=== PATIENT | male | born 1945 | race Caucasian/White ===

== ENCOUNTER 2016-07-30 19:47 | Emergency (ER) | payer OTHER, MEDICARE ==
[2016-07-30 20:15] VITALS: BP 106/66
--- NOTE | 2016-07-30 20:39 | ED GENERAL ADULT ---
History of Present Illness General Chief Complaint: Dizziness Stated Complaint: PER PT DIZZINESS/FEVER? Source: patient, family Exam Limitations: no limitations Vital Signs & Intake/Output Vital Signs & Intake/Output Vital Signs Date Time Temp Pulse Resp B/P B/P Pulse O2 O2 Flow FiO2 Mean Ox Delivery Rate 07/30 2014 96.6 96 18 106/66 96 Room Air Allergies Coded Allergies: No Known Allergies (07/30/16) Reconcile Medications Aspirin (Ecotrin*) 81 MG TABLET.DR 1 TAB PO DAILY HEART/BLOOD (Reported) Atorvastatin Calcium 10 MG TABLET 1 TAB PO DAILY CHOLESTEROL (Reported) Glipizide (Glipizide ER) 10 MG TAB.ER.24 1 TAB PO BID DM (Reported) Lisinopril 20 MG TABLET 1 TAB PO DAILY BP (Reported) Metformin HCl (Metformin HCl ER) 500 MG TAB.ER.24H 2 TAB PO BID DM (Reported) Phenazopyridine HCl 200 MG TABLET 1 TAB PO TID (Reported) after food Pioglitazone HCl 45 MG TABLET 1 TAB PO DAILY DM (Reported) Sulfamethoxazole/Trimethoprim (Sulfamethoxazole-Tmp Ds Tablet) 800 MG-160 MG TABLET 1 TAB PO BID (Reported) Triage Note: TRIAGE: PATIENT TO ER FROM HOME W/ SPOUSE, REPORTS WAS SENT IN BY HIS MD FOR CONTINUED FEVERS S/P DX W/ UTI AND IS TAKING ABX PRESCRIBED. PATIENT AFEBRILE. PATIENT REPORTING "I FEEL STUPID BEING HERE, I DON'T EVEN HAVE ANY COMPLAINTS AND I DON'T HAVE A FEVER RIGHT NOW." MD ALLEN AWARE AND WILL COME TO TRIAGE TO SPEAK TO PATIENT. Triage Nurses Notes Reviewed? yes Onset: Abrupt Duration: day(s): Timing: recent history HPI: 07/30/16 9:30 pm 71-year-old man presents to the emergency department with fever. He saw his primary care doctor yesterday and was diagnosed with UTI. He has had a UTI in the past. He denies any abdominal pain vomiting or other complaints. The onset of the symptoms was abrupt, the duration has been 48 hours, the severity is significant; as the symptoms required to come to the emergency department for care (LAKISHA ALLEN DO) Past History Travel History Traveled to [place] past 21 day No Medical History Any Pertinent Medical History? see below for history Neurological: NONE EENT: NONE Cardiovascular: NONE Respiratory: NONE Gastrointestinal: NONE Hepatic: NONE Renal: NONE Musculoskeletal: NONE Psychiatric: NONE Endocrine: diabetes Blood Disorders: NONE Cancer(s): NONE WELLNESS SPA MANAGER/Reproductive: NONE Surgical History Surgical History: non-contributory Psychosocial History What is your primary language Vietnamese Tobacco Use: Never used Family History Hx Contributory? No (LAKISHA ALLEN DO) Review of Systems Review of Systems Constitutional: Reports: fever. EENTM: Reports: no symptoms. Respiratory: Denies: cough, short of breath. Cardiovascular: Denies: chest pain. GI: Denies: abdominal pain. Genitourinary: Reports: dysuria. Musculoskeletal: Denies: back pain. Skin: Denies: rash. Neurological/Psychological: Denies: headache. Hematologic/Endocrine: Denies: bruising, bleeding. (LAKISHA ALLEN DO) Physical Exam Physical Exam General Appearance: well developed/nourished, alert, awake, anxious, mild distress Head: atraumatic, normal appearance Eyes: Bilateral: normal appearance, PERRL, EOMI. Ears, Nose, Throat: normal ENT inspection Neck: full range of motion Respiratory: normal breath sounds, chest non-tender, no respiratory distress Cardiovascular: regular rate/rhythm Peripheral Pulses: 4+ radial (R), 4+ radial (L) Gastrointestinal: soft, non-tender Rectal: heme negative stool, enlarged prostate, nontender Back: normal range of motion Extremities: normal range of motion Neurologic/Psych: no motor/sensory deficits, awake, alert, oriented x 3, normal gait Skin: intact, normal color, warm/dry Core Measures ACS in differential dx? No CVA/TIA Diagnosis: No Severe Sepsis Present: No Septic Shock Present: No (LAKISHA ALLEN DO) Progress Differential Diagnoses I considered the following diagnoses in my evaluation of the patient: [Sepsis, diabetic ketoacidosis, pyelonephritis] Plan of Care: Orders Procedure Date/time Status Add-on Test (ER Only) 07/31 2143 Active LYME TITRE 07/30 2050 Active CULTURE,URINE 07/30 2038 Active BLOOD CULTURE 07/30 2038 Active URINALYSIS 07/30 2038 Complete COMPREHENSIVE METABOLIC PANEL 07/30 2038 Complete CBC WITHOUT DIFFERENTIAL 07/30 2038 Complete Laboratory Tests 07/30/162055: Urinalysis LIGHT H, Urine Color YEL, Urine Clarity HAZY H, Urine pH 6.0, Ur Specific [place] 1.015, Urine Protein TRACE H, Urine Ketones NEG, Urine Nitrite POS H, Urine Bilirubin NEG, Urine Urobilinogen 1.0, Ur Leukocyte Esterase SMALL H, Ur Microscopic SEDIMENT EXAMINED, Urine WBC 15-25 H, Urine Hemoglobin NEG, Urine Glucose NEG 07/30/162050: Anion Gap 11, Estimated GFR 50 L, BUN/Creatinine Ratio 15.7, Glucose 166 H, Calcium 9.1, Total Bilirubin 1.1, AST 29, ALT 39, Alkaline Phosphatase 66, Total Protein 6.6, Albumin 4.1, Globulin 2.5, Albumin/Globulin Ratio 1.6, CBC w Diff NO MAN DIFF REQ, RBC 4.47 L, MCV 86.7, MCH 29.2, RDW 13.7, MPV 7.6, Gran % 88.7 H, Lymphocytes % 4.0 L, Monocytes % 6.4, Eosinophils % 0.8, Basophils % 0.1, Absolute Granulocytes 9.2 H, Absolute Lymphocytes 0.4 L, Absolute Monocytes 0.7 H, Absolute Eosinophils 0.1, Absolute Basophils 0, PUBS MCHC 33.6, Lyme Disease Antibody Pending Microbiology 07/30 2106 BLOOD: Blood Culture - RECD 07/31 2055 URINE ROUT: Urine Culture - RECD 07/30 2050 BLOOD: Blood Culture - RECD Initial ED EKG: none (LAKISHA ALLEN DO) Departure Departure Disposition: HOME OR SELF CARE Condition: Stable Clinical Impression Primary Impression: Urinary tract infection Referrals: ROD YUEN,TIA Devine Departure Forms: Customer Survey General Discharge Information Comments The patient was signed out to Dr. Gramajo will follow labs. He has mild azotemia and a slightly elevated creatinine. He will drink fluids and take the antibiotics and follow up with his doctor as instructed. (LAKISHA ALLEN DO) PA/PHYSICAL SCIENTIST Co-Sign Statement Statement: ED Attending supervision documentation- [] I saw and evaluated the patient. I have also reviewed all the pertinent lab results and diagnostic results. I agree with the findings and the plan of care as documented in the PA's/PHYSICAL SCIENTIST's documentation. [x] I have reviewed the ED Record and agree with the PA's/PHYSICAL SCIENTIST's documentation. [] Additions or exceptions (if any) to the PAs/PHYSICAL SCIENTIST's note and plan are summarized below: [] (TERRI YUEN,STACY Mandel) Critical Care Note Critical Care Note Critical Care Time: non-applicable (LAKISHA ALLEN DO)
[2016-07-30] MEDS ORDERED: ATORVASTATIN CA10 M1 PO (20:56)
[2016-07-30] MEDS ORDERED: LISINOPRIL20 M1 PO (20:56)
[2016-07-30] MEDS ORDERED: GLIPIZIDE ER10 M1 PO (20:57)
[2016-07-30] MEDS ORDERED: METFORMIN HCL500 M4 PO (20:57)
[2016-07-30] MEDS ORDERED: PIOGLITAZONE HC45 M1 PO (20:57)
[2016-07-30] MEDS ORDERED: ASPIRIN EC81 M1 PO (20:58)
[2016-07-30] MEDS ORDERED: SULFAMETHOXAZO1 EAC1 PO (20:58)
[2016-07-30] MEDS ORDERED: PHENAZOPYRIDIN200 M3 PO (20:58)
[2016-07-30 21:00] LABS: ABSOLUTE BASOPHIL COUNT 0 /CUMM (0.0-0.2); ABSOLUTE EOSINOPHIL COUNT 0.1 /CUMM (0.0-0.7); ABSOLUTE GRANULOCYTE CT 9.2 /CUMM (1.4-6.5); ABSOLUTE LYMPH COUNT 0.4 /CUMM (1.2-3.4); ABSOLUTE MONOCYTE COUNT 0.7 /CUMM (0.10-0.60); BASOPHIL % 0.1 % (0.0-2.0); EOSINOPHIL % 0.8 % (0-5); HEMATOCRIT 38.7 % (42-52); MEAN CORPUSCULAR HGB 29.2 PG (27.0-31.0); MEAN CORPUSCULAR HGB CONC 33.6 G/DL (33.0-37.0); MEAN CORPUSCULAR VOLUME 86.7 FL (80.0-94.0); MEAN PLATELET VOLUME 7.6 FL (7.4-10.4); PLATELET COUNT 147 /CUMM (130-400); RBC DISTRIBUTION WIDTH 13.7 % (11.5-14.5); RED BLOOD CELL CT 4.47 /CUMM (4.70-6.10); WHITE BLOOD CELL COUNT 10.3 /CUMM (4.8-10.8)
[2016-07-30 21:03] LABS: GRANULOCYTE % 88.7 % (42.2-75.2)
== END 2016-07-30 22:06 ==
LOC: ERH 19:47
PROVIDERS: Emergency Medicine
DX: N39.0 Urinary tract infection, site not specified (principal)
CPT/HCPCS: 86618; 81001; 87040; 87086

== ENCOUNTER 2016-08-29 15:46 | Inpatient (IN) | payer OTHER, MEDICARE ==
[~2016-08-29] VITALS: Ht 182.9 cm; Wt 90.7 kg
[~2016-08-29 15:46] MED LIST: ASPIRIN EC81 M1 PO; ATORVASTATIN CA10 M1 PO; GLIPIZIDE ER10 M1 PO; LISINOPRIL20 M1 PO; METFORMIN HCL500 M4 PO; PHENAZOPYRIDIN200 M3 PO; PIOGLITAZONE HC45 M1 PO; SULFAMETHOXAZO1 EAC1 PO
--- NOTE | 2016-08-29 15:52 | NUR ---
PT TO ED FOR C/C OF LIGHTHEADEDNESS, FEVER AND LETHARGY THAT STARTED THIS MORNING. DENIES CP, SOB, DIFFICULTY BREATHING. SOME NAUSEA, HAS HAD RECURRENT UTI'S OVER THE LAST FEW WEEKS TREATED WITH ANTIBIOTICS. TOOK TYLENOL AT 1330 FOR FEVER. PER PRIMARY, ?PROSTATE INFECTION THAT HASN'T RESOLVED. BP 93/59 HR: 120
--- NOTE | 2016-08-29 16:00 | NUR ---
PT WHEELED TO ROOM 18 WENT TO BATHROOM AND NOW BEEN ASSISTED TO STRETCHER AND EKG TO BE COMPLETED
--- NOTE | 2016-08-29 16:20 | NUR ---
MARYAM CRANE AT BEDSIDE WITH PT
[2016-08-29 16:23] LABS: ABSOLUTE BASOPHIL COUNT 0 /CUMM (0.0-0.2); ABSOLUTE EOSINOPHIL COUNT 0 /CUMM (0.0-0.7); ABSOLUTE GRANULOCYTE CT 17.3 /CUMM (1.4-6.5); ABSOLUTE LYMPH COUNT 0.5 /CUMM (1.2-3.4); ABSOLUTE MONOCYTE COUNT 1.2 /CUMM (0.10-0.60); BASOPHIL % 0 % (0.0-2.0); EOSINOPHIL % 0.1 % (0-5); GRANULOCYTE % 90.9 % (42.2-75.2); HEMATOCRIT 40.6 % (42-52); MEAN CORPUSCULAR HGB 29.3 PG (27.0-31.0); MEAN CORPUSCULAR HGB CONC 33.9 G/DL (33.0-37.0); MEAN CORPUSCULAR VOLUME 86.6 FL (80.0-94.0); MEAN PLATELET VOLUME 7.5 FL (7.4-10.4); PLATELET COUNT 228 /CUMM (130-400); RBC DISTRIBUTION WIDTH 14.2 % (11.5-14.5); RED BLOOD CELL CT 4.69 /CUMM (4.70-6.10)
--- NOTE | 2016-08-29 16:23 | ED GENERAL ADULT ---
History of Present Illness General Chief Complaint: Fever Stated Complaint: FEVER,LIGHTHEADED,LETHARGIC Source: patient, family Exam Limitations: no limitations Vital Signs & Intake/Output Vital Signs & Intake/Output Vital Signs Date Time Temp Pulse Resp B/P B/P Pulse O2 O2 Flow FiO2 Mean Ox Delivery Rate 08/29 2358 100.5 08/29 2345 100.5 107 20 140/62 95 08/29 2234 100.0 97 18 109/57 97 Room Air 08/29 2115 104 111/56 08/29 2050 102.0 107 20 97/53 95 Room Air 08/29 1952 102.9 08/29 1950 102.9 08/29 1918 103.2 08/29 1904 103.2 08/29 1820 99.5 105 20 120/60 97 Room Air 08/29 1803 99.5 98 16 119/69 98 Room Air 08/29 1641 97 Room Air 08/29 1552 97.8 120 15 93/59 96 Room Air Room Air ED Intake and Output 08/30 0000 08/29 1200 Intake Total 1000 Output Total Balance 1000 Intake, IV 1000 Patient 200 lb Weight Weight Reported by Patient Measurement Method Allergies Coded Allergies: No Known Allergies (08/29/16) Reconcile Medications Ascorbate Calcium (Vitamin C) 500 MG TABLET 1 TAB PO BID SUPPLEMENT (Reported ) Aspirin (Ecotrin*) 81 MG TABLET.DR 1 TAB PO DAILY HEART/BLOOD (Reported) Atorvastatin Calcium 10 MG TABLET 1 TAB PO DAILY CHOLESTEROL (Reported) Empagliflozin (Jardiance) 10 MG TABLET 1 TAB PO DAILY DM (Reported) Fish Oil/Borage/Flax/Om3,6,9#1 ([place] 3-6-9 1,200 MG Softgel) 1,200 MG CAPSULE 1 CAP PO DAILY SUPPLEMENT (Reported) Glipizide (Glucotrol XL) 10 MG TAB.ER.24 1 TAB PO DAILY DM (Reported) Lisinopril 20 MG TABLET 1 TAB PO DAILY BP (Reported) Metformin HCl (Metformin HCl ER) 500 MG TAB.ER.24H 2 TAB PO BID DM (Reported) Multivitamin (Daily Multiple Vitamin) 1 EACH TABLET 1 TAB PO DAILY SUPPLEMENT (Reported) Pioglitazone HCl (Actos) 30 MG TABLET 1 TAB PO DAILY DM (Reported) Selenium 100 MCG TABLET 1 TAB PO DAILY SUPPLEMENT (Reported) Triage Note: PT TO ED FOR C/C OF LIGHTHEADEDNESS, FEVER AND LETHARGY THAT STARTED THIS MORNING. DENIES CP, SOB, DIFFICULTY BREATHING. SOME NAUSEA, HAS HAD RECURRENT UTI'S OVER THE LAST FEW WEEKS TREATED WITH ANTIBIOTICS. TOOK TYLENOL AT 1330 FOR FEVER. PER PRIMARY, ?PROSTATE INFECTION THAT HASN'T RESOLVED. BP 93/59 HR: 120 Triage Nurses Notes Reviewed? yes Onset: Abrupt Duration: hour(s): (3-4), better Timing: single episode today Injury Environment: home Severity: mild, moderate No Modifying Factors: none HPI: 71-year-old male with past medical history of diabetes, hypertension, recurrent UTI and hyperlipidemia presents for evaluation of fever, headaches, lightheadedness, dizziness fatigue and weakness for the past day. Patient reports symptoms started suddenly approximately 9:30 this morning and a gradually been worsening throughout the day. Patient states that he took 2 extra strength Tylenol approximately an hour before coming in and currently feels much better. He does report some pain in his right flank and right lower back that is present only when urinating and goes away immediately after is done urinating. He also reports associated urinary frequency but no urgency no dysuria no hematuria. He has a history of recurrent UTIs as well as prostatitis. Again patient currently feels well and denies any symptoms currently. They resolved approximately an hour after taking Tylenol. No shortness of breath, chest pain, lower extremity edema, nausea, vomiting, diarrhea or any other associated symptoms. Patient also reports that he had sexual intercourse last night and felt that his semen was a differENT color (LASHAUN CRANE PA-C) Past History Travel History Traveled to [place] past 21 day No Medical History Any Pertinent Medical History? see below for history Neurological: NONE EENT: NONE Cardiovascular: hypertension, hyperlipidemia Respiratory: NONE Gastrointestinal: NONE Hepatic: NONE Renal: NONE Musculoskeletal: NONE Psychiatric: NONE Endocrine: diabetes Blood Disorders: NONE Cancer(s): NONE CLIENT SUPPORT REPRESENTATIVE/Reproductive: NONE Surgical History Surgical History: non-contributory Psychosocial History What is your primary language Azerbaijani Tobacco Use: Never used ETOH Use: denies use Illicit Drug Use: denies illicit drug use Family History Hx Contributory? Yes (LASHAUN CRANE PA-C) Review of Systems Review of Systems Constitutional: Reports: see HPI, chills, diaphoresis, fever, malaise. EENTM: Reports: no symptoms. Respiratory: Reports: no symptoms. Cardiovascular: Reports: no symptoms. GI: Reports: no symptoms. Genitourinary: Reports: no symptoms. Musculoskeletal: Reports: no symptoms. Skin: Reports: no symptoms. Neurological/Psychological: Reports: no symptoms. Hematologic/Endocrine: Reports: no symptoms. Immunologic/Allergic: Reports: no symptoms. All Other Systems: Reviewed and Negative (ROYCE FUNEZ,LASHAUN) Physical Exam Physical Exam General Appearance: well developed/nourished, no apparent distress, alert, awake , comfortable Comments: General: Hemodynamically stable. Afebrile. Well-developed well-nourished person in no acute distress. Head: Atraumatic, normocephalic Eyes: EOMI bilaterally, PERRLA, conjunctiva are not injected, no discharge, no nystagmus, fundus grossly normal bilaterally Nose: Atraumatic, no rhinorrhea, mucosa is not erythematous, no epistaxis. Sinuses are non-tender Ears: TM pearly murray color bilaterally, external canal is clear, no discharge, hearing is normal Mouth: Appropriate dentition, no gingival bleeding, moist mucus membranes, no oral lesions, tonsils not erythematous or enlarged and free of exudate. Uvula rises midline. Neck: Supple, full active ROM, no lymphadenopathy, no midline tenderness to palpation, no thyromegaly, no tracheal deviation. Back: Non-tender, full active ROM, no scoliosis, no CVA tenderness Cardiovascular: regular rate and rhythm, no murmurs, rubs, or gallops. No JVD Respiratory: Chest is nontender. Regular respiratory rate and effort. No accessory muscle use. Lungs clear to auscultation bilaterally. Abdomen: Soft, non-tender, non-distended, no organomegaly. No rebound tenderness or guarding. Normoactive bowel sounds. Extremities: No edema. No gross deformities. No joint swelling. No calf swelling or tenderness. Full active and passive ROM. Strength 5/5 in upper and lower extremities. Peripheral pulses 2+ bilaterally, Patellar DTR 2+ Neuro: No confusion. Motor and sensory function is intact. Appropriate gait. Cerebellar function intact. Skin: Warm and dry. Appropriate turgor. No lesions or bruising. No appreciable rash on exposed skin. Core Measures ACS in differential dx? Yes CVA/TIA Diagnosis: No Severe Sepsis Present: No Septic Shock Present: No (ROYCE FUNEZ,LASHAUN) Progress Differential Diagnoses I considered the following diagnoses in my evaluation of the patient: [UTI, prostatitis, pyelonephritis, sepsis, kidney stone, chronic kidney disease, diverticulitis, appendicitis, pneumonia, acute coronary syndrome, Lyme disease] Plan of Care: Orders Procedure Date/time Status Consistent Carbohydrate 3 08/30 B Active CBC WITHOUT DIFFERENTIAL 08/30 06 Active BASIC ELECTROLYTES PLUS BUN&CR 08/30 06 Active LACTIC ACID 08/30 0000 Active Vital Signs 08/29 235 Active Teach/Educate 08/29 235 Active Pain Treatment and Response 08/29 235 Active Nutritional Intake, Monitor 08/29 235 Active Isolation 08/29 235 Active Intake & Output 08/29 235 Active Patient Care Conference 08/29 235 Active Activity/Ambulation 08/30 2355 Active Pathway - chart 08/29 2224 Active House Staff 08/29 2224 Active Patient Data 08/29 2224 Active Patient Data 08/29 2054 Active Saline Lock 08/29 2032 Active Misc Message 08/29 2032 Active ED Holding Orders 08/29 2032 Active Admit to inpatient 08/29 2032 Active Vital Signs 08/29 2032 Active Code Status 08/29 2032 Active LACTIC ACID 08/29 1929 Complete Add-on Test (ER Only) 08/29 1833 Active Add-on Test (ER Only) 08/29 1716 Active Telemetry/Taker Down 08/29 1642 Complete Intake & Output 08/29 1638 Active BLOOD CULTURE 08/29 1631 Active LACTIC ACID 08/29 1629 Complete CULTURE,URINE 08/29 1609 Active TROPONIN LEVEL 08/29 1609 Complete URINALYSIS 08/29 1553 Complete COMPREHENSIVE METABOLIC PANEL 08/29 1553 Complete CBC WITHOUT DIFFERENTIAL 08/29 1553 Complete EKG 08/29 1553 Active VTE Mechanical Prophylaxis 08/29 UNK Active FingerStick- Glucose 08/29 UNK Active Current Medications Sig/Arlette Start time Last Medication Dose Stop Time Status Admin Atorvastatin Calcium 10 MG 1700 08/30 1700 AC (Lipitor) Aspirin Buffered 81 MG DAILY 08/30 1000 AC (Ecotrin) Ceftriaxone Sodium 1,000 MG DAILY 08/30 1000 AC (Rocephin) Fish Oil 1,050 MG DAILY 08/30 1000 AC ([place]-3) Multivitamins 1 TAB DAILY 08/30 1000 AC Therapeutic (Theragran-M Vitamins Tabs) Insulin Aspart 0 TIDAC 08/30 0800 AC (NovoLOG) Sodium Chloride 1,000 ML Q13H 08/29 2230 AC 08/29 (Normal Saline 0.9%) 08/30 1129 2323 Ascorbic Acid 500 MG BID 08/29 2221 AC (Vitamin C) Acetaminophen 325 MG Q6 PRN 08/29 221 AC (Tylenol) Acetaminophen 650 MG Q6P PRN 08/29 221 AC (Tylenol) Acetaminophen 1,000 MG Q6P PRN 08/29 221 AC 08/29 (Ofirmev) 2358 Laboratory Tests 08/30/16 0025: Lactic Acid Pending 08/29/16 2105: Lactic Acid 2.5 H 08/29/16 1749: Lactic Acid 3.1 H 08/29/16 1609: Anion Gap 15, Estimated GFR 55 L, BUN/Creatinine Ratio 25.4 H, Glucose 252 H, Calcium 9.7, Total Bilirubin 1.1, AST 22, ALT 35, Alkaline Phosphatase 64, Troponin I < 0.01, Total Protein 7.5, Albumin 4.8, Globulin 2.7, Albumin/ Globulin Ratio 1.8, CBC w Diff MAN DIFF ORDERED, RBC 4.69 L, MCV 86.6, MCH 29.3 , RDW 14.2, MPV 7.5, Gran % 90.9 H, Lymphocytes % 2.7 L, Monocytes % 6.3, Eosinophils % 0.1, Basophils % 0 L, Absolute Granulocytes 17.3 H, Segmented Neutrophils 79 H, Band Neutrophils 9 H, Absolute Lymphocytes 0.5 L, Lymphocytes 2 L, Monocytes 9, Absolute Monocytes 1.2 H, Absolute Eosinophils 0 , Absolute Basophils 0, Metamyelocytes 1, Platelet Estimate ADEQUATE, Normocytic RBCs VERIFIED, Normochromic RBCs VERIFIED, PUBS MCHC 33.9, Urine Color YEL, Urine Clarity HAZY H, Urine pH 5.5, Ur Specific [place] 1.010, Urine Protein 30 H, Urine Ketones NEG, Urine Nitrite NEG, Urine Bilirubin NEG, Urine Urobilinogen 0.2, Ur Leukocyte Esterase SMALL H, Ur Microscopic SEDIMENT EXAMINED, Urine RBC 25-50 H, Urine WBC 50-75 H, Ur Epithelial Cells RARE, Urine Bacteria MANY H, Urine Hemoglobin LARGE H, Urine Glucose >=1000 H Microbiology 08/29 1749 BLOOD: Blood Culture - RECD 08/29 1735 BLOOD: Blood Culture - RECD 08/29 1609 URINE ROUT: Urine Culture - RECD 5 PM: Patient seen and evaluated. He is currently afebrile but his blood pressure is low and he is mildly tachycardic. He will have workup to rule out sepsis. He was given a liter normal saline. Will follow-up on blood work and urinalysis. Was given another 2 L of normal saline as his blood pressures continued to remain in the 90s over 50s. Urine is showing signs of infection. Lactate is 3.9 white blood cell count elevated to 19. Blood cultures obtained. Patient was given a gram of ceftriaxone IV. CT scan of the abdomen and pelvis without contrast was ordered to rule out any type of obstructive nephropathy. Patient was also given IV Tylenol as his fever has returned. Patient will be admitted for treatment of prostatitis versus pyelonephritis with possible sepsis. 9:30 PM: Patient's blood pressure has responded to IV fluids. He is running in the low 110s over 60s. He still mildly tachycardic to the low 100s. He still has a low-grade fever. CT scan abdomen and pelvis showed non-specific signs of pyelonephritis. Talked with the hospitalist patient will be admitted. It is possible he may need to go to the ICU due to his hypotension. 10 PM: Since patient's blood pressure responded to the IV fluids he'll be admitted to [facility]. (ROYCE FUNEZ,LASHAUN) Diagnostic Imaging: Viewed by Me: Radiology Read, CT Scan. Discussed w/RAD: Radiology Read, CT Scan. Initial ED EKG: SINUS TACH,PROBABLE LEFT ATRIAL ABNR Comments: PATIENT: FRANCISCO BURDICK PRESENT AGE: 71 PATIENT ACCOUNT NO: [id number] : 46 LOCATION: [facility] ORDERING PHYSICIAN: LASHAUN CRANE PA-C SERVICE DATE: 08/29/16 EXAM TYPE: RAD - XRY-PORTABLE CHEST XRAY EXAMINATION: XR PORTABLE CHEST CLINICAL INFORMATION: Pneumonia. Fever of unknown origin COMPARISON: None TECHNIQUE: Portable frontal view of the chest was obtained. FINDINGS: Monitoring devices overlie the patient. The cardiac size is within normal limits. There is no mediastinal or hilar mass. The vasculature, lungs and visualized pleural margins are within normal limits. There is some degenerative change in the spine IMPRESSION: No pneumonia or edema. No etiology for fever demonstrated DICTATED BY: RENEE MISHRA MD DATE/TIME DICTATED:08/29/161715 AIRLINE MANAGERIAL SUPERVISOR:DARIN DATE/TIME TRANSCRIBED:08/29/161715 CONFIDENTIAL, DO NOT COPY WITHOUT APPROPRIATE AUTHORIZATION. <Electronically signed in Other Vendor System> SIGNED BY: RENEE MISHRA MD 08/29/16 1721 PATIENT: FRANCISCO BURDICK PRESENT AGE: 71 PATIENT ACCOUNT NO: [id number] : 46 LOCATION: [facility] ORDERING PHYSICIAN: STACY MURRAY MD SERVICE DATE: 08/29/16 EXAM TYPE: CAT - CT ABD & PELVIS W/O IV CONTRAS EXAMINATION: CT ABDOMEN AND PELVIS WITHOUT CONTRAST CLINICAL INFORMATION: Left flank pain. Pyelonephritis versus prostatitis versus stone. COMPARISON: None TECHNIQUE: Multidetector volumetric imaging was performed from the superior aspect of the liver through the pubic symphysis. Sagittal and coronal reformatted images were obtained on the technologist's workstation. DLP: 407 mGy-cm FINDINGS: LUNG BASES: Subsegmental atelectasis. The visualized cardiac structures are unremarkable. LIVER, GALLBLADDER, AND BILIARY TREE: The liver is normal in size, shape, and attenuation. No focal hepatic lesion or biliary ductal dilatation is present. The gallbladder is unremarkable with no evidence of radiopaque gallstones, gallbladder wall thickening, or obvious pericholecystic inflammatory changes. PANCREAS: Unremarkable. SPLEEN: Unremarkable. ADRENAL GLANDS: Unremarkable. KIDNEYS AND URETERS: The kidneys are normal in size, shape, and attenuation. There is no hydronephrosis or hydroureter. There is bilateral perinephric stranding, right greater than left. There is an exophytic right lower pole renal cyst measuring 4.4 cm. No renal calculi. BLADDER: Unremarkable. GASTROINTESTINAL TRACT: The stomach and small bowel are unremarkable. No dilated loops of bowel or evidence of obstruction. Normal appendix. No colonic wall thickening or inflammatory change. Mild to moderate colonic stool burden. ABDOMINAL WALL: No significant hernia is appreciated. LYMPH NODES: Normal. VASCULAR: Mild atherosclerotic calcifications. PELVIC VISCERA: The prostate and seminal vesicles are unremarkable. OSSEOUS STRUCTURES: No acute or suspicious osseous abnormality. Multilevel degenerative changes of the spine. Degenerative changes in the hips. IMPRESSION: No hydronephrosis. No renal calculi. There is bilateral perinephric stranding, right greater than left. This is a nonspecific appearance. Lack of IV contrast limits evaluation of the kidneys. Pyelonephritis is not excluded. DICTATED BY: BARB SANTIAGO MD DATE/TIME DICTATED:08/29/162104 AIRLINE MANAGERIAL SUPERVISOR:DAIRN DATE/TIME TRANSCRIBED:08/29/162104 CONFIDENTIAL, DO NOT COPY WITHOUT APPROPRIATE AUTHORIZATION. <Electronically signed in Other Vendor System> SIGNED BY: BARB SANTIAGO MD 08/29 (LASHAUN CRANE PA-C) Departure Departure Disposition: STILL A PATIENT Condition: Stable Clinical Impression Primary Impression: Prostatitis, acute Referrals: LOIDA YUEN,NICA Lawrence (PCP/Family) Departure Forms: Customer Survey General Discharge Information Admission Note Spoke With: EDUARD ROMERO MD Documentation of Exam: Documentation of any treatments & extenuating circumstances including Concerns Regarding Discharge (functional status, medication knowledge or non-compliance, living conditions, etc.) that warrant an admission rather than observation: [IV fluids, serial labs, urology consult, monitoring of vital signs, IV antibiotics, follow-up on cultures, blood pressure control] (LASHAUN CRANE PA-C) PA/MANAGER ASSESSMENT Co-Sign Statement Statement: ED Attending supervision documentation- [] I saw and evaluated the patient. I have also reviewed all the pertinent lab results and diagnostic results. I agree with the findings and the plan of care as documented in the PA's/MANAGER ASSESSMENT's documentation. [x] I have reviewed the ED Record and agree with the PA's/MANAGER ASSESSMENT's documentation. [] Additions or exceptions (if any) to the PAs/MANAGER ASSESSMENT's note and plan are summarized below: [] (TERRI YUEN,STACY Mandel) Critical Care Note Critical Care Note Critical Care Time: non-applicable (LASHAUN CRANE PA-C)
--- NOTE | 2016-08-29 17:14 | NUR ---
FRANCISCO BURDICK Nurse Note by: MICHAEL OWENS I agree with the DISTRICT SALES COORDINATOR findings/evaluation of this patient's condition. Entered by: MICHAEL OWENS Date: 08/29/16 Time: 2700
--- NOTE | 2016-08-29 17:21 | RADIOLOGY REPORT ---
EXAMINATION: XR PORTABLE CHEST CLINICAL INFORMATION: Pneumonia. Fever of unknown origin COMPARISON: None TECHNIQUE: Portable frontal view of the chest was obtained. FINDINGS: Monitoring devices overlie the patient. The cardiac size is within normal limits. There is no mediastinal or hilar mass. The vasculature, lungs and visualized pleural margins are within normal limits. There is some degenerative change in the spine IMPRESSION: No pneumonia or edema. No etiology for fever demonstrated
--- NOTE | 2016-08-29 17:50 | NUR ---
PT COMPLETED IV NS
--- NOTE | 2016-08-29 18:51 | NUR ---
CRITICAL TEST RESULTS [id number] FRANCISCO BURDICK 71 M TESTS AND RESULTS: LACTIC 3.1 Results received and read back by: GLADIS MAY Results received date and time: 08/29/161850 The following provider was notified of the results, and read the results back: MARYAM CRANE Notified date and time: 08/29/16 at 1852
--- NOTE | 2016-08-29 19:03 | NUR ---
PT NOTED SHIVERING AND STS HE DOES NOT FEEL WELL. RECTAL TEMP TAKEN AND NOTED TO BE 103.2
--- NOTE | 2016-08-29 19:15 | NUR ---
PT MEDICATED WITH TYLENOL IV ORDERED
--- NOTE | 2016-08-29 19:50 | NUR ---
PT RECHECKED AND STIL AT 102.9
--- NOTE | 2016-08-29 20:40 | NUR ---
PT NOTED TO HAVE VOIDED NUMEROUS TIMES THIS PAST HOUR ABOUT 5 TIMES AND HE ATTRIBUTES IT THE FLUIDS HE RECEIVED. PT STILL REMAINS FEBRILE
--- NOTE | 2016-08-29 20:49 | NUR ---
PT LEFT FOR CAT SCAN
[2016-08-29] MEDS ORDERED: GLUCOTROL XL10 MG PO (20:54)
[2016-08-29] MEDS ORDERED: ACTOS30 M1 PO (20:56)
[2016-08-29] MEDS ORDERED: JARDIANCE10 M1 PO (20:56)
[2016-08-29] MEDS ORDERED: DAILY MULTIPLE1 EACH PO (20:57)
[2016-08-29] MEDS ORDERED: OMEGA 3-6-9 11200 MG PO (20:58)
[2016-08-29] MEDS ORDERED: VITAMIN C500 M6 PO (20:58)
[2016-08-29] MEDS ORDERED: SELENIUM100 MCG PO (20:59)
--- NOTE | 2016-08-29 21:02 | NUR ---
PT PEPPER TUBE SENT TO THE LAB
--- NOTE | 2016-08-29 21:10 | NUR ---
PT HAS A THIRD LITER INFUSING AND PRESSURE MUCH BETTER AFTER SECODND
--- NOTE | 2016-08-29 21:13 | CT SCAN REPORT ---
EXAMINATION: CT ABDOMEN AND PELVIS WITHOUT CONTRAST CLINICAL INFORMATION: Left flank pain. Pyelonephritis versus prostatitis versus stone. COMPARISON: None TECHNIQUE: Multidetector volumetric imaging was performed from the superior aspect of the liver through the pubic symphysis. Sagittal and coronal reformatted images were obtained on the technologist's workstation. DLP: 407 mGy-cm FINDINGS: LUNG BASES: Subsegmental atelectasis. The visualized cardiac structures are unremarkable. LIVER, GALLBLADDER, AND BILIARY TREE: The liver is normal in size, shape, and attenuation. No focal hepatic lesion or biliary ductal dilatation is present. The gallbladder is unremarkable with no evidence of radiopaque gallstones, gallbladder wall thickening, or obvious pericholecystic inflammatory changes. PANCREAS: Unremarkable. SPLEEN: Unremarkable. ADRENAL GLANDS: Unremarkable. KIDNEYS AND URETERS: The kidneys are normal in size, shape, and attenuation. There is no hydronephrosis or hydroureter. There is bilateral perinephric stranding, right greater than left. There is an exophytic right lower pole renal cyst measuring 4.4 cm. No renal calculi. BLADDER: Unremarkable. GASTROINTESTINAL TRACT: The stomach and small bowel are unremarkable. No dilated loops of bowel or evidence of obstruction. Normal appendix. No colonic wall thickening or inflammatory change. Mild to moderate colonic stool burden. ABDOMINAL WALL: No significant hernia is appreciated. LYMPH NODES: Normal. VASCULAR: Mild atherosclerotic calcifications. PELVIC VISCERA: The prostate and seminal vesicles are unremarkable. OSSEOUS STRUCTURES: No acute or suspicious osseous abnormality. Multilevel degenerative changes of the spine. Degenerative changes in the hips. IMPRESSION: No hydronephrosis. No renal calculi. There is bilateral perinephric stranding, right greater than left. This is a nonspecific appearance. Lack of IV contrast limits evaluation of the kidneys. Pyelonephritis is not excluded.
--- NOTE | 2016-08-29 21:25 | NUR ---
DR. ROMERO AT BEDSIDE TO EVAL PT AND STS PT WAS POSTIVE ORTHOSTATIC AND WE SHOULD TRY ANOTHER LITER FOR A TOTAL OF 4L TO DECIDE IF PT WILL BE BE DOWNGRADED TO [facility] OR NOT
--- NOTE | 2016-08-29 21:38 | NUR ---
PT IS GOING TO 109-1
--- NOTE | 2016-08-29 22:50 | NUR ---
PT IS GOING TO -
--- NOTE | 2016-08-29 22:50 | NUR ---
CRITICAL TEST RESULTS [id number] FRANCISCO BURDICK 71 M TESTS AND RESULTS: LACTIC 2.5 Results received and read back by: GLADIS MYA Results received date and time: 08/29/16 2250 The following provider was notified of the results, and read the results back: MARYAM SAHU Notified date and time: 08/29/16 at 2250
--- NOTE | 2016-08-29 22:51 | NUR ---
ATTEMPT TO CALL REPORT AND WAS INFORMED THEY DO NOT KNOW WHO THE NURSE IS YET AND THAT WE WILL BE NOTIFIED WHEN THEY DO
--- NOTE | 2016-08-29 22:54 | NUR ---
[facility] RESIDENT CALLED BACK AND WAS INFORMED OF LACTIC ACID RESULT
--- NOTE | 2016-08-29 23:22 | NUR ---
REPORT GIVEN TO NURSE CHIARA AND PT STARTED ON FOURTH LITER OF FLUIDS
--- NOTE | 2016-08-29 23:24 | History & Physical ---
GAURI ESPINAL 08/29/16 2236: General Information and HPI MD Statement: I have seen and personally examined FRANCISCO BURDICK and documented this H&P. The patient is a 71 year old M who presented with a patient stated chief complaint of [fever]. Source of Information: patient, family Exam Limitations: no limitations History of Present Illness: Mr. Burdick is a 71-year-old gentleman with significant past medical history of diabetes, hypertension, hyperlipidemia, recurrent UTIs [2 urinary tract infections over the last 6 weeks treated with 2 courses of Bactrim] who presented to the hospital emergency department with after being advised to do so by his primary care physician. He recently completed his second course of Bactrim for urinary tract infection last week. He woke up this morning with a fever of 102.8, headache, and a feeling of overall weakness and fatigue. He denies any specific urinary complaints including dysuria, hematuria, or malodor. He did state that his ejaculate was slightly discolored yesterday compared to his baseline ejacaulate. He denied any pain with intercourse, or defecation. Remaining review of systems was negative including chest pain, dyspnea, palpitations, lightheadedness, dizziness, diplopia or tinnitus. He also denies any fevers, chills, diaphoresis, nausea or vomiting, as well as diarrhea. He denies any recent travel or sick contacts. He denied smoking, alcohol intake or illicit/recreational drug use. Family hx positive for renal cell ca and DM father in his (passed at 69). No remarkable medical hx in his mother (passed at 96). Physicians he follows: Dr. Simpson (PCP), Dr. Gan (urology), Dr. Seymour ( cardiology) and Dr. Peres (ophthalmology). In the emergency department, he was found to be febrile and hypotensive, 97.8 which trended up to 102 [MAXIMUM TEMPERATURE 103.2], and 93/59 which trended up to 111/56 after fluid resuscitation. He was also tachycardic, which also resolved after fluid resuscitation. Significant labs include white blood cell count 19,000, H&H 13.8/40.6. BUNs/ creatinine 33/1.3. Glucose 252. Urinalysis was remarkable for leukocyte esterase positive, nitrite negative. 25-50 red blood cells and 50-75 white blood cells. Urinary glucose significantly elevated greater than 1000. Lactic acid 3.1. Imaging in the emergency department, chest x-ray unremarkable. CT of the abdomen and pelvis without contrast revealed bilateral right greater than left stranding of the kidneys. In the emergency department cultures were drawn, he was given 1 g of ceftriaxone and fluid resuscitated with 3 L of normal saline. Allergies/Medications Allergies: Coded Allergies: No Known Allergies (08/29/16) Home Med list Ascorbate Calcium (Vitamin C) 500 MG TABLET 1 TAB PO BID SUPPLEMENT (Reported ) Aspirin (Ecotrin*) 81 MG TABLET.DR 1 TAB PO DAILY HEART/BLOOD (Reported) Atorvastatin Calcium 10 MG TABLET 1 TAB PO DAILY CHOLESTEROL (Reported) Empagliflozin (Jardiance) 10 MG TABLET 1 TAB PO DAILY DM (Reported) Fish Oil/Borage/Flax/Om3,6,9#1 ([place] 3-6-9 1,200 MG Softgel) 1,200 MG CAPSULE 1 CAP PO DAILY SUPPLEMENT (Reported) Glipizide (Glucotrol XL) 10 MG TAB.ER.24 1 TAB PO DAILY DM (Reported) Lisinopril 20 MG TABLET 1 TAB PO DAILY BP (Reported) Metformin HCl (Metformin HCl ER) 500 MG TAB.ER.24H 2 TAB PO BID DM (Reported) Multivitamin (Daily Multiple Vitamin) 1 EACH TABLET 1 TAB PO DAILY SUPPLEMENT (Reported) Pioglitazone HCl (Actos) 30 MG TABLET 1 TAB PO DAILY DM (Reported) Selenium 100 MCG TABLET 1 TAB PO DAILY SUPPLEMENT (Reported) Compliance With Home Meds: GOOD Past History Travel History Traveled to [place] past 21 day No Medical History Neurological: NONE EENT: NONE Cardiovascular: hypertension, hyperlipidemia Respiratory: NONE Gastrointestinal: NONE Hepatic: NONE Renal: NONE Musculoskeletal: NONE Psychiatric: NONE Endocrine: diabetes Blood Disorders: NONE Cancer(s): NONE [place] 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 Relation not specified for: *No pertinent family history Psychosocial History Where do you live? Home Who Do You Live With? spouse Services at Home: None Primary Language: Greenlandic Smoking Status: Never Smoked ETOH Use: denies use Illicit Drug Use: denies illicit drug use Functional Ability ADLs Independent: dressing, eating, toileting, bathing. Ambulation: independent IADLs Independent: shopping, housework, finances, food prep, telephone, transportation , medication admin. Review of Systems Review of Systems Constitutional: Reports: see HPI. Exam & Diagnostic Data Last 24 Hrs of Vital Signs/I&O Vital Signs Date Time Temp Pulse Resp B/P B/P Pulse O2 O2 Flow FiO2 Mean Ox Delivery Rate 08/294 100.0 97 18 109/57 97 Room Air 08/29 2115 104 111/56 08/29 2049 102.0 107 20 97/53 95 Room Air 08/29 1952 102.9 08/29 1950 102.9 08/29 1918 103.2 08/29 1904 103.2 08/29 1820 99.5 105 20 120/60 97 Room Air 08/29 1803 99.5 98 16 119/69 98 Room Air 08/29 1641 97 Room Air 08/29 1552 97.8 120 15 93/59 96 Room Air Room Air Intake & Output 08/29 1600 08/29 0800 08/29 0000 Intake Total Output Total Balance Patient 91.172 kg Weight Weight Reported by Patient Measurement Method Physical Exam General Appearance Alert, Oriented X3, Cooperative, No Acute Distress Skin No Rashes Skin Temp/Moisture Exam: Warm/Dry Sepsis Skin Exam (color): Normal for Ethnicity HEENT Atraumatic, EOMI, Mucous Membr. moist/pink Cardiovascular Regular Rate, Normal S1, Normal S2 Lungs Clear to Auscultation, Normal Air Movement Abdomen Normal Bowel Sounds, Soft, No Tenderness, no suprapubic tenderness Extremities No Edema, No Tenderness/Swelling Rectal Multiple hemorrhoids. Prostate not enlarged, approx 30 grams. No nodules. Slightly firm, no tenderness. Last 24 Hrs of Labs/Donaldo: Laboratory Tests 08/29/162104: Lactic Acid Pending 08/29/16 1749: Lactic Acid 3.1 H 08/29/16 1609: Anion Gap 15, Estimated GFR 55 L, BUN/Creatinine Ratio 25.4 H, Glucose 252 H, Calcium 9.7, Total Bilirubin 1.1, AST 22, ALT 35, Alkaline Phosphatase 64, Troponin I < 0.01, Total Protein 7.5, Albumin 4.8, Globulin 2.7, Albumin/ Globulin Ratio 1.8, CBC w Diff MAN DIFF ORDERED, RBC 4.69 L, MCV 86.6, MCH 29.3 , RDW 14.2, MPV 7.5, Gran % 90.9 H, Lymphocytes % 2.7 L, Monocytes % 6.3, Eosinophils % 0.1, Basophils % 0 L, Absolute Granulocytes 17.3 H, Segmented Neutrophils 79 H, Band Neutrophils 9 H, Absolute Lymphocytes 0.5 L, Lymphocytes 2 L, Monocytes 9, Absolute Monocytes 1.2 H, Absolute Eosinophils 0 , Absolute Basophils 0, Metamyelocytes 1, Platelet Estimate ADEQUATE, Normocytic RBCs VERIFIED, Normochromic RBCs VERIFIED, PUBS MCHC 33.9, Urine Color YEL, Urine Clarity HAZY H, Urine pH 5.5, Ur Specific [place] 1.010, Urine Protein 30 H, Urine Ketones NEG, Urine Nitrite NEG, Urine Bilirubin NEG, Urine Urobilinogen 0.2, Ur Leukocyte Esterase SMALL H, Ur Microscopic SEDIMENT EXAMINED, Urine RBC 25-50 H, Urine WBC 50-75 H, Ur Epithelial Cells RARE, Urine Bacteria MANY H, Urine Hemoglobin LARGE H, Urine Glucose >=1000 H Microbiology 08/29 1749 BLOOD: Blood Culture - RECD 08/29 1735 BLOOD: Blood Culture - RECD 08/29 1609 URINE ROUT: Urine Culture - RECD Diagnostic Data EKG Results EKG revealed sinus tachycardia at a rate of 102 bpm. ND interval 152 ms, QTC 423 ms. Normal axis. No significant ST-T changes and good R-wave progression. CXR Results SERVICE DATE: 08/29/16 EXAM TYPE: RAD - XRY-PORTABLE CHEST XRAY EXAMINATION: XR PORTABLE CHEST CLINICAL INFORMATION: Pneumonia. Fever of unknown origin COMPARISON: None TECHNIQUE: Portable frontal view of the chest was obtained. FINDINGS: Monitoring devices overlie the patient. The cardiac size is within normal limits. There is no mediastinal or hilar mass. The vasculature, lungs and visualized pleural margins are within normal limits. There is some degenerative change in the spine IMPRESSION: No pneumonia or edema. No etiology for fever demonstrated Assessment/Plan Assessment: Mr. Burdick is a 71-year-old gentleman with significant past medical history of diabetes, hypertension, hyperlipidemia, recurrent UTIs [2 urinary tract infections over the last 6 weeks treated with 2 courses of Bactrim] who presented to the hospital emergency department with after being advised to do so by his primary care physician. Significant labs include white blood cell count 19,000, H&H 13.8/40.6. BUNs/ creatinine 33/1.3. Glucose 252. Urinalysis was remarkable for leukocyte esterase positive, nitrite negative. 25-50 red blood cells and 50-75 white blood cells. Urinary glucose significantly elevated greater than 1000. Lactic acid 3.1. Problem List 1. SIRS 2/2 UTI 2. Lactic Acidosis 3. FAWN 4. HTN 5. DM 6. HLD Assessment and Plan * We'll plan to admit the patient to the general medicine floor with IV antibiotics on board, ceftriaxone 1 g daily, and fluid resuscitation, normal saline at 100 mL per hour for 1 bag. * Blood cultures and urine cultures were collected prior to initiation of antibiotics. * Given his recurrent infections, I believe that these are secondary to glucosuria. Given the fact that he is on an SGLT2 inhibitor, this may be the culprit as the mechanism of action to treat the patient's diabetes is to induce glucosuria. * We will continue ceftriaxone for now, although the patient has grown enterococcus previously, as well as Escherichia coli. * If the patient does not improve or continues to spike temperatures, consider vancomycin to cover enterococcus. * I believe his lactic acidosis is most likely secondary to hypotension, as it has improved with fluid resuscitation. We will continue fluid resuscitation and recheck at 1 AM. * I also believe his acute kidney injury is secondary to hypotension. We will repeat a basic metabolic panel in the morning. * Regarding his hypotension, as he does have significant glucosuria, which will act as a diuretic, he is probably not maintaining by mouth intake as well as, which probably contributed to his hypotension. * We will hold his antihypertensive medications for now, as well as his by mouth antihyperglycemic medications. * We will place him on NovoLog sliding scale with fingersticks 3 times a day before meals at bedtime. Please consider discontinuing his SGLT-2 inhibitor upon discharge as again this may be the culprit of his recurrent urinary tract infections. * We will continue statin for hyperlipidemia. Full code Consistent carbohydrate diet Pain pathway disorder. Alps for DVT prophylaxis. As Ranked By This Provider Problem List: 1. Urinary tract infection Core Measures/Miscellaneous Acute Coronary Syndrome ACS Diagnosis: No Cerebrovascular Accident CVA/TIA Diagnosis: No Congestive Heart Failure CHF Diagnosis: No VTE (View Protocol) VTE Risk Factors: Age > 40 [facility] d/t: No contraindications No VTE Pharm Prophylaxis d/t: No contraindications VTE Diagnosis: No VTE Type: NONE VTE Confirmed by (Test): NONE Sepsis (View Protocol) Severe Sepsis Present: No Septic Shock Septic Shock Present: No Miscellaneous Documentation Attending Case Discussed With: EDUARD ROMERO MD Primary Care Physician: NICA MARISCAL MD Patient sees these Specialists see HPI Level of Patient Care: General Medicine HEATHERAGUEDAJOSEPH 08/30/16 0127: Attending MD Review Statement Attending Statement Attending MD Statement: examined this patient, discuss w/resident/PA/TRANSPORTATION ASSISTANT, agreed w/resident/PA/TRANSPORTATION ASSISTANT, discussed with family, reviewed EMR data (avail), reviewed images, amended to note Attending Assessment/Plan: CC: Lethargy, fatigue, fever, lightheadedness PMH: DM, HTN, HLD Patient came to ER for fever of 102.8, lightheadedness, lethargy. Since last 6 weeks patient had 2 episodes of UTI compromising of urinary frequency, burning, irritation. Patient was prescribed 7 days of Bactrim 2 times so far. Again this morning patient started to notice increased frequency in urine, similar to previous UTI. Followed by patient had fever of 102.8, felt lightheaded at which point suggested him to go to ER after talking to PCP. He was given 2 tablets of Tylenol just before arrival in ER. Patient was recently started on Empagliflozin, 3 days back. Patient has been compliant with all his medications, recently has been drinking a lot of water after starting new medication. Patient denies any prostate problems in the past. noticed changed color of semen yesterday. Patient denies any perineal pain, urethral pain, back pain, abdominal pain, loss of consciousness, cough, chest pain. Vitals: Tmax in ER 103.2, HR 120, RR 15, transiently hypotensive 93/59 in ER improved with IV hydration up to 111/56, saturating well on room air. On exam: A O 3, cooperative, no acute distress, neck supple, JVD normal, no lymphadenopathy, mucosa moist, no focal neurological deficit, no dependent edema , no obvious skin rashes or inflammation CVS: S1-S2, RRR. RS: Clear to auscultate bilaterally. Abdomen: Soft, NT, ND, bowel sounds present. No CVA tenderness, no inguinal lymphadenopathy, genital exam normal, Peripheral pulses perfusion normal, rectal exam revealed no prostate tenderness Labs: WBC 19.0, 90% neutrophils, 9 bands, hemoglobin 13.8, hematocrit 40.6, lately to 28, sodium 134, potassium 4.5, chloride 96, bicarbonate 23, anion gap 15, BUN 33, creatinine 1.3, glucose 252, calcium 9.7, LFT unremarkable, troponin less than 0.01, UA positive for protein, small leukocyte esterase, RBC 20-50, WBC 50-75, large hemoglobin, glucose more than 1000, negative for nitrites CXR: No pneumonia or edema. No etiology for fever demonstrated CT abdomen without IV contrast: No hydronephrosis. No renal calculi. There is bilateral perinephric stranding, right greater than left. This is a nonspecific appearance. Lack of IV contrast limits valuation of the kidneys. Pyelonephritis is not excluded. A and P 71-year-old male with past medical history significant for HTN, DM, HLD, presented in ER for lethargy, lightheadedness, fever at home. Patient has increased urinary frequency, 2 episodes of UTI treated with Bactrim within the last 6 weeks. There has been urine cultures positive for Escherichia coli and enterococcus in the past in 2010 and 2012. Patient does not have any prostatic enlargement on examination or on CT scan, no urinary retention. CT scan mentions probable pyelonephritis right greater than left, there is no CVA tenderness. UA positive for leukocyte esterase only, positive for RBC. There is is significant leukocytosis. Patient was transiently hypotensive with elevated lactic acid in ER, Responded well to IV fluids. Recently started medication Empagliflozin, may be adding up to hypovolemia secondary to diuresis with glucosuria, additionally increasing risk of UTI. Patient has elevated creatinine of 1.3 with BUN of 33, previous comparison is from August 2013 , thus baseline unclear. Suspect acute kidney injury at this point. + Pyelonephritis + Severe sepsis + History of DM, HTN, HLD - Admit to general medicine - Continue maintenance fluids after fourth liter of bolus - Trend lactate - Closely monitor her vitals - Urine culture, blood culture - Continue IV ceftriaxone - If persistently spiking fever or hypotension and vancomycin - Add CPK to sample in lab - DC all oral hypoglycemics, continue sliding scale insulin - Hold lisinopril - Repeat CBC, BMP in a.m. - Adequate pain control - DVT prophylaxis with heparin
[2016-08-29 23:45] VITALS: BP 140/62
--- NOTE | 2016-08-30 00:27 | NUR ---
NURSING NOTE LATE ENTRY: PT ARRIVED TO FLOOR VIA WHEELCHAIR FROM EMERGENCY DEPARTMENT. PT IS A&OX3, AWAKE, CALM AND COOPERATIVE. HR 107, TEMP 100.5 ORALLY. DEEPA TYLER MD MADE AWARE OF THESE VITALS. OTHER VSS. PT ON RA, NO DISTRESS NOTED. IV TYLENOL GIVEN FOR LOW-GRADE TEMP, PT C/O NO PAIN. PT DENIES URINARY SYMPTOMS. PT INDEPENDENT, STEADY GAIT. SKIN INTACT, NO BREAKDOWN NOTED. PT REPORTS NOT HAVING MUCH OF AN APPETITE FOR THE PAST DAY. LAST BM ON 08/28/16. +BOWEL SOUND IN ALL 4 QUADS. BLOOD SUGAR 185. LACTIC ACID DRAWN AND SENT TO LAB. MAINTENANCE FLUIDS RUNNING AT 75 ML/HR. NO FURTHER ORDERS FROM MD AT THIS TIME. INFO PACKET GIVEN. PT RESTING COMFORTABLY AT THIS TIME. WILL CONTINUE TO MONITOR.
--- NOTE | 2016-08-30 01:28 | Admission Certification ---
Admission Certification Certification Statement - As attending physician, I certify that at the time of - admission, based on clinical presentation, severity of - symptoms, need for further diagnostic testing and - therapeutic interventions, and risk of adverse outcomes - without in-hospital treatment, in my clinical assessment, - this patient requires an acute hospital stay for a minimum - of two nights or longer. I have also considered psychsocial - factors such as support system, advanced age, financial - issues, cognitive issues, and failed out-patient treatments, - past re-admission history, safety of patient, and lack of - compliance as applicable. Specific rationale supporting this admission is: Pyelonephritis, severe sepsis
[2016-08-30 06:40] VITALS: BP 138/52
[2016-08-30 08:53] LABS: ABSOLUTE BASOPHIL COUNT 0 /CUMM (0.0-0.2); ABSOLUTE EOSINOPHIL COUNT 0 /CUMM (0.0-0.7); ABSOLUTE GRANULOCYTE CT 9.2 /CUMM (1.4-6.5); ABSOLUTE LYMPH COUNT 0.5 /CUMM (1.2-3.4); ABSOLUTE MONOCYTE COUNT 1.1 /CUMM (0.10-0.60); BASOPHIL % 0 % (0.0-2.0); EOSINOPHIL % 0.2 % (0-5); GRANULOCYTE % 84.5 % (42.2-75.2); MEAN CORPUSCULAR HGB 29.5 PG (27.0-31.0); MEAN CORPUSCULAR HGB CONC 33.9 G/DL (33.0-37.0); MEAN PLATELET VOLUME 7.7 FL (7.4-10.4); PLATELET COUNT 144 /CUMM (130-400); RBC DISTRIBUTION WIDTH 13.9 % (11.5-14.5); RED BLOOD CELL CT 3.91 /CUMM (4.70-6.10); WHITE BLOOD CELL COUNT 10.9 /CUMM (4.8-10.8)
--- NOTE | 2016-08-30 09:42 | PN- Housestaff ---
WILMER YUEN,DOROTHY 08/30/16 0942: Subjective Follow-up For: UTI Subjective: I saw and examined the patient this AM. Pt has no complaints today. Denies fever , chills, suprapubic pain, dysuria, hemature, frequency,or urgency. Denies chest pain or SOB. Review of Systems Constitutional: Denies: see HPI. Objective Last 24 Hrs of Vital Signs/I&O Vital Signs Date Time Temp Pulse Resp B/P B/P Pulse O2 O2 Flow FiO2 Mean Ox Delivery Rate 08/30 2035 101.4 08/30 1854 102.8 / 1837 103.5 / 1444 100.9 93 20 128/60 94 Room Air 08/30 1435 100.9 08/30 1322 101.2 08/30 1319 101.2 /08 1200 99.9 /08 0837 99.4 / 0658 100.8 / 0640 100.8 87 20 138/52 96 / 2358 100.5 / 2345 100.5 107 20 140/62 95 07/07 2234 100.0 97 18 109/57 97 Room Air 08/29 2115 104 111/56 Intake & Output / 1600 07/08 0800 07/08 0000 Intake Total 2625 720 1000 Output Total 1175 Balance 2625 -455 1000 Intake, IV 845 163 9905 Intake, Oral 2400 120 Output, Urine 1175 Patient 200 lb Weight Weight Reported by Patient Measurement Method Physical Exam General Appearance: Alert, Oriented X3, Cooperative, No Acute Distress HEENT: Atraumatic, Mucous Membr. moist/pink Cardiovascular: Regular Rate, Normal S1, Normal S2 Lungs: Clear to Auscultation Abdomen: Normal Bowel Sounds, Soft, No Tenderness Assessment/Plan Assessment: Pt is a 71 year old male with PMH of HTN, HLD, DM, multiple UTI's in the past 6 weeks admitted to the floor for UTI vs possible pyelonephritis. 1. UTI vs pyelonphritis - CT of abdomen: bilateral perinephric stranding, right greater than left - pt has no flank pain, no abdominal pain - pt has been spiking fevers, but otherwise is clinically stable with no signs of symptoms indicative of pyelonephritis. - pt's WBC is improving 19.0 to 10.9 on ceftriaxone. - pt's temp was elevated - improving on ibuprofen (tylenol failed to help) - current UTI may be due to SGLT2 inhibitor however it does not explain the previous UTIs in the past 6 weeks as the patient started this medication only recently: 08/27 - pt has an appointment with Urology for September 2. Lactic acidosis - Resolved - pt received IV fluid hydration - last level: 1.5 3. FAWN - resolved - most likely secondary to dehydration. Improved with IV fluids. 4. HTN - held lisinopril due to FAWN - currently normotensive 5. DM: - pt on sliding scale insulin 6. HLD: - continue statin Code: Full Diet: regular DVT PPx: ALPs Problem List: 1. Urinary tract infection Pain Ratin Pain Location: none Pain Goal: Remain pain free Pain Plan: none Tomorrow's Labs & Rationales: cbc sarah PATEL MD,SHANNAN 08/30/16 1200: Attending MD Review Statement Attending Statement Attending MD Statement: examined this patient, discuss w/resident/PA/PILLOWCASE SEWER, agreed w/resident/PA/PILLOWCASE SEWER, reviewed EMR data (avail), discussed with nursing, reviewed images, amended to note Attending Assessment/Plan: 71-year-old male with past medical history significant for hypertension, hyperlipidemia, diabetes mellitus, has been admitted to the floor for possible pyelonephritis. Patient has been started on IV ceftriaxone. And was seen and examined on the bedside and was doing okay, reports that he feels much better and was able to tolerate food with no nausea or vomiting. Will keep the patient on IV antibiotics as the patient still continues to have fever but clinically he is doing better. His white count has came down. The patient attributes his recent UTI to the beginning of a new medication for his diabetes, empagliflozin. We'll keep the patient on IV antibiotics and IV fluids and will reassess tomorrow in the morning. We'll continue the rest of his home medications and DVT prophylaxis.
--- NOTE | 2016-08-30 13:51 | NUR ---
NURSING NOTE: PATIENT CALLED THIS RN INTO THE ROOM C/O FEELING SLIGHT CHILLS AND SHAKY. TEMP AT THIS TIME 101.2, BS 213. PATIENT GIVEN IV TYLENOL, INCIDENT MANAGER 077 NOTIFIED. WILL RE-CHECK TEMP IN ONE HOUR
--- NOTE | 2016-08-30 14:37 | NUR ---
NURSING NOTE: PATEINT'S TEMP WENT FROM 101.2 TO 100.9 ONE HOUR AFTER IV TYLENOL WAS GIVEN. RETURN CHECKER 077 NOTIFIED.
[2016-08-30 14:44] VITALS: BP 128/60
--- NOTE | 2016-08-30 15:48 | NUR ---
EARLIER TEMP 1001.2 (2PM) IV TYNELOL GIVEN BY PRIOR NURSE. RECHECKED TEMP AT THIS TIME 100.4 DR. DOROTHY GUILLEN #[id number] MADE AWARE.
--- NOTE | 2016-08-30 18:37 | NUR ---
RECHECKED PT TEMP 103.5. ROSANNA MORALES MD MADE AWARE. DR. JACQUES GUILLEN 077 AT BEDSIDE. AWAITING NEW ORDERS. ALSO AT BEDSIDE.
--- NOTE | 2016-08-30 20:00 | NUR ---
NURSING NOTE: PT TEMP 102.8 ORALLY. PT C/O ACHES AND CHILLS. ICE PACKS APPLIED. JUNIOR STAFF ACCOUNTANT #[id number] AND HOLDEN GAMEZ MADE AWARE. PO TYLENOL GIVEN. WILL RECHECK TEMPERATURE WITHIN ONE HOUR. WILL CONTINUE TO MONITOR.
--- NOTE | 2016-08-30 21:00 | NUR ---
NURSING NOTE: PT STATES HE IS FEELING BETTER AFTER GETTING PREVIOUS MOTRIN FROM EVENING NURSE AND TYLENOL FROM THIS RN. TEMPERATURE 98.2 ORALLY. WILL CONTINUE TO MONITOR.
[2016-08-30 21:59] VITALS: BP 132/66
--- NOTE | 2016-08-31 06:00 | NUR ---
NURSING NOTE: OVERNIGHT PT INFORMED THIS RN THAT HE BROKE OUT IN SWEATS OVERNIGHT AND STATES WHEN HE GOT UP TO USE THE BATHROOM DURING THE NIGHT HE FELT BETTER AND WAS NOT FEELING LIGHTHEADED. TEMPERATURE CHECKED ORALLY AND WAS 98.7. PT OFFERS NO COMPLAINTS AT THIS TIME. WILL CONTINUE TO MONITOR.
[2016-08-31 06:40] VITALS: BP 136/74
[2016-08-31 08:06] LABS: ABSOLUTE BASOPHIL COUNT 0 /CUMM (0.0-0.2); ABSOLUTE EOSINOPHIL COUNT 0.1 /CUMM (0.0-0.7); ABSOLUTE GRANULOCYTE CT 5.8 /CUMM (1.4-6.5); ABSOLUTE LYMPH COUNT 0.6 /CUMM (1.2-3.4); ABSOLUTE MONOCYTE COUNT 0.8 /CUMM (0.10-0.60); BASOPHIL % 0 % (0.0-2.0); EOSINOPHIL % 0.9 % (0-5); GRANULOCYTE % 80.1 % (42.2-75.2); HEMATOCRIT 37.2 % (42-52); MEAN CORPUSCULAR HGB 29.2 PG (27.0-31.0); MEAN CORPUSCULAR HGB CONC 33.2 G/DL (33.0-37.0); MEAN CORPUSCULAR VOLUME 87.8 FL (80.0-94.0); MEAN PLATELET VOLUME 7.5 FL (7.4-10.4); PLATELET COUNT 154 /CUMM (130-400); RBC DISTRIBUTION WIDTH 14.4 % (11.5-14.5); RED BLOOD CELL CT 4.23 /CUMM (4.70-6.10); WHITE BLOOD CELL COUNT 7.2 /CUMM (4.8-10.8)
--- NOTE | 2016-08-31 08:48 | PN- Housestaff ---
JAYDEN YUEN,[facility] 08/31/16 0847: Subjective Follow-up For: UTI Subjective: I have personally seen and examined the patient this morning. Denies any nausea, vomiting,chills,SOB, urinary symptoms or overnight events except for having one episode of fever last night . Review of Systems Constitutional: Reports: see HPI. Objective Last 24 Hrs of Vital Signs/I&O Vital Signs Date Time Temp Pulse Resp B/P B/P Pulse O2 O2 Flow FiO2 Mean Ox Delivery Rate 08/31 1500 99.8 08/31 1427 99.7 86 20 134/70 98 Room Air 08/31 1234 100.4 08/31 1228 100.4 08/31 0640 98.7 76 20 136/74 98 08/30 2159 98.2 90 20 132/66 94 Room Air 08/30 2154 98.2 08/30 2115 101.4 08/30 2052 101.4 08/30 203 101.4 Intake & Output 08/31 1600 08/31 0800 08/31 0000 Intake Total 800 240 340 Output Total Balance 800 240 340 Intake, Oral 800 240 340 Number 1 Bowel Movements Physical Exam General Appearance: Alert, Oriented X3, Cooperative, No Acute Distress Other Physical Findings: General Appearance: Alert, Oriented X3, Cooperative, No Acute Distress HEENT: Atraumatic, Mucous Membr. moist/pink Cardiovascular: Regular Rate, Normal S1, Normal S2 Lungs: Clear to Auscultation Abdomen: Normal Bowel Sounds, Soft, No Tenderness Current Medications: Current Medications Sig/Arlette Start time Last Medication Dose Route Stop Time Status Admin Acetaminophen 650 MG .STK-MED ONE 08/30 2032 DC PO 08/30 2033 Acetaminophen 325 MG Q6 PRN 08/29 2214 AC PO Acetaminophen 650 MG Q6P PRN 08/29 221 AC 08/31 PO 1234 Acetaminophen 1,000 MG Q6P PRN 08/29 2215 AC 08/30 IV 1322 Ascorbic Acid 500 MG BID 08/29 222 AC 08/31 PO 0952 Aspirin Buffered 81 MG DAILY 08/30 999 AC 08/31 PO 0951 Atorvastatin Calcium 10 MG 1700 08/30 1700 AC 08/31 PO 1704 Ceftriaxone Sodium 1,000 MG DAILY 08/30 999 AC 08/31 IV 0952 Fish Oil 1,050 MG DAILY 08/30 999 AC 08/31 PO 0952 Ibuprofen 600 MG TID PRN 08/30 1900 AC 08/30 PO 1854 Insulin Aspart 0 TIDAC 08/30 0800 AC 08/31 SC 1704 Multivitamins 1 TAB DAILY 08/30 1000 AC 08/31 Therapeutic PO 0951 Last 24 Hrs of Lab/Donaldo Results Last 24 Hrs of Labs/Mics: Laboratory Tests 08/31/16 0654: CBC w Diff NO MAN DIFF REQ, RBC 4.23 L, MCV 87.8, MCH 29.2, RDW 14.4, MPV 7.5, Gran % 80.1 H, Lymphocytes % 7.8 L, Monocytes % 11.2 H, Eosinophils % 0.9, Basophils % 0 L, Absolute Granulocytes 5.8, Absolute Lymphocytes 0.6 L, Absolute Monocytes 0.8 H, Absolute Eosinophils 0.1, Absolute Basophils 0, PUBS MCHC 33.2, Lyme Disease Antibody Pending Assessment/Plan Assessment: Pt is a 71 year old male with PMH of HTN, HLD, DM, multiple UTI's in the past 6 weeks admitted to the floor for UTI vs possible pyelonephritis. 1. UTI vs pyelonphritis - CT of abdomen: bilateral perinephric stranding, right greater than left - pt has no flank pain, no abdominal pain - pt has been spiking fevers, but otherwise is clinically stable with no signs of symptoms indicative of pyelonephritis. - pt's WBC is improving 7.2 today on ceftriaxone. - pt's temp was elevated - improving on ibuprofen (tylenol failed to help) - current UTI may be due to SGLT2 inhibitor however it does not explain the previous UTIs in the past 6 weeks as the patient started this medication only recently: 08/27 - pt has an appointment with Urology for September 24. Lactic acidosis - Resolved - pt received IV fluid hydration - last level: 1.5 3. FAWN - resolved - most likely secondary to dehydration. Improved with IV fluids. 4. HTN - held lisinopril due to FAWN - currently normotensive 5. DM: - pt on sliding scale insulin 6. HLD: - continue statin Code: Full Diet: regular DVT PPx: ALPs Problem List: 1. Urinary tract infection Pain Ratin Pain Location: None Pain Goal: Remain pain free Pain Plan: None Tomorrow's Labs & Rationales: CBC,BEP AMANDA YUEN,SHANNAN 08/31/16 1027: Attending MD Review Statement Attending Statement Attending MD Statement: examined this patient, discuss w/resident/PA/WIRE DRAWER, agreed w/resident/PA/WIRE DRAWER, reviewed EMR data (avail), discussed with nursing, discussed with case mgmt, reviewed images Attending Assessment/Plan: 71-year-old male with past medical history significant for hypertension, hyperlipidemia, diabetes mellitus, has been admitted to the floor for possible pyelonephritis. Patient has been started on IV ceftriaxone. And was seen and examined on the bedside and was doing okay, reports that he feels much better and was able to tolerate food with no nausea or vomiting. Patient did spike fever last night along with sweating Will keep the patient on IV antibiotics as the patient still continues to have fever but clinically he is doing better. His white count has became normalized. The patient attributes his recent UTI to the beginning of a new medication for his diabetes, empagliflozin. Patient urine cultures grew gram-negative rods but sensitivities not yet back. We'll keep the patient on IV antibiotics and IV fluids and will reassess tomorrow in the morning. We'll continue the rest of his home medications and DVT prophylaxis.
[2016-08-31 14:27] VITALS: BP 134/70
[2016-08-31 22:04] VITALS: BP 120/78
[2016-09-01 06:53] VITALS: BP 124/72
--- NOTE | 2016-09-01 06:57 | PN- Housestaff ---
See Addendum Subjective Follow-up For: UTI Subjective: Febrile to 101.7 last night. Received tylenol, temperature this morning 97.8. This morning he feels like he is improving. He has no dysuria or abdominal pain. He mentions that his first UTI was 6 weeks ago. Since then it has come back twice. He believes it is because the course of antibiotics was not long enough to completely kill the bacteria. He is hoping he'll be prescribed a longer course this time. He is also thinking that he can go home today. Review of Systems Constitutional: Denies: no symptoms. Cardiovascular: Denies: no symptoms. Respiratory: Denies: no symptoms. Gastrointestinal: Denies: no symptoms. Genitourinary: Denies: no symptoms. Musculoskeletal: Denies: no symptoms. Objective Last 24 Hrs of Vital Signs/I&O Vital Signs Date Time Temp Pulse Resp B/P B/P Pulse O2 O2 Flow FiO2 Mean Ox Delivery Rate 09/01 0553 97.8 62 20 124/72 97 08/31 2233 100.6 08/31 2204 99.8 76 20 120/78 98 08/31 2148 100.0 08/31 2147 100.0 08/31 2042 101.7 08/31 1500 99.8 08/31 1427 99.7 86 20 134/70 98 Room Air 08/31 1234 100.4 08/31 1228 100.4 Intake & Output 09/01 0800 09/01 0000 08/31 1600 Intake Total 800 Output Total Balance 800 Intake, Oral 800 Number 1 Bowel Movements Physical Exam General Appearance: Alert, Oriented X3, Cooperative, No Acute Distress Cardiovascular: Regular Rate, Normal S1, Normal S2 Lungs: Clear to Auscultation Abdomen: Normal Bowel Sounds, Soft, No Tenderness, No Masses Neurological: Normal Speech, Normal Tone, Cranial Nerves 3-12 NL Extremities: No Edema, Normal Pulses Current Medications: Current Medications Sig/Arlette Start time Last Medication Dose Route Stop Time Status Admin Acetaminophen 650 MG .STK-MED ONE 08/31 2042 DC PO 09/01 2043 Acetaminophen 650 MG .STK-MED ONE 08/31 1233 DC PO 08/31 1234 Acetaminophen 325 MG Q6 PRN 08/29 2214 AC PO Acetaminophen 650 MG Q6P PRN 08/29 2215 AC 08/31 PO 2041 Acetaminophen 1,000 MG Q6P PRN 08/29 2215 AC 08/30 IV 1322 Ascorbic Acid 500 MG BID 08/29 2221 AC 08/31 PO 2111 Aspirin Buffered 81 MG DAILY 08/30 1000 AC 08/31 PO 0951 Atorvastatin Calcium 10 MG 1700 08/30 1700 AC 08/31 PO 1704 Ceftriaxone Sodium 1,000 MG DAILY 08/30 1000 AC / IV 0952 Fish Oil 1,050 MG DAILY 08/30 1000 AC 08/31 PO 0952 Ibuprofen 600 MG TID PRN 08/30 1900 AC 08/31 PO 2148 Insulin Aspart 0 TIDAC 08/30 0800 AC 08/31 SC 1704 Multivitamins 1 TAB DAILY 08/30 1000 AC 08/31 Therapeutic PO 0951 Assessment/Plan Assessment: Pt is a 71 year old male with PMH of HTN, HLD, DM, multiple UTI's in the past 6 weeks admitted to the floor for UTI vs possible pyelonephritis. His first UTI ever was 6 weeks ago. He got a short course of Bactrim it seems. It recurred a few weeks later. He received another course of antibiotics. It has since recurred and that is why he is here. It is unclear why he has had 3 UTIs in the past 6 weeks after not having UTIs his whole life. He is on an SGLT 2 inhibitor that may increase glucose secretion in the urine. Perhaps this provided a medium for bacteria that was not killed by previous courses of antibiotics. However he did not start this drug until after August 26. His culture shows urine growing Escherichia coli that is pansensitive. He did spike a fever to 101.7 last night that responded well to ibuprofen. However he feels good and is requesting discharge. CT of the abdomen showed bilateral perinephric stranding on the right greater than left. #Pyelonephritis. White blood cell count has improved to 4.3 today and he is looking better. He did have a fever last night but he has no pain and is now afebrile. He will be discharged today. -Continue ceftriaxone. Discharge with augmentin for 14 days. -pt has an appointment with Urology for September #Lactic acidosis - Resolved with IV fluid hydration #FAWN - resolved with IV fluid hydration #Chronic medical problems: Diabetes, hyperlipidemia, hypertension. -Holding oral hypoglycemics -pt on sliding scale insulin - continue statin -Held lisinopril due to FAWN. Currently normotensive held Code: Full Diet: regular DVT PPx: ALPs Problem List: 1. Urinary tract infection Pain Ratin Pain Location: No pain Pain Goal: Remain pain free Pain Plan: Ibuprofen Tomorrow's Labs & Rationales: none
[2016-09-01 08:14] LABS: ABSOLUTE BASOPHIL COUNT 0 /CUMM (0.0-0.2); ABSOLUTE EOSINOPHIL COUNT 0.1 /CUMM (0.0-0.7); ABSOLUTE GRANULOCYTE CT 2.8 /CUMM (1.4-6.5); ABSOLUTE LYMPH COUNT 0.7 /CUMM (1.2-3.4); ABSOLUTE MONOCYTE COUNT 0.7 /CUMM (0.10-0.60); BASOPHIL % 0.4 % (0.0-2.0); EOSINOPHIL % 3.2 % (0-5); GRANULOCYTE % 64.9 % (42.2-75.2); HEMATOCRIT 35.1 % (42-52); MEAN CORPUSCULAR HGB 28.9 PG (27.0-31.0); MEAN CORPUSCULAR HGB CONC 33.3 G/DL (33.0-37.0); MEAN CORPUSCULAR VOLUME 86.7 FL (80.0-94.0); MEAN PLATELET VOLUME 7.6 FL (7.4-10.4); PLATELET COUNT 153 /CUMM (130-400); RBC DISTRIBUTION WIDTH 14.2 % (11.5-14.5); RED BLOOD CELL CT 4.05 /CUMM (4.70-6.10); WHITE BLOOD CELL COUNT 4.3 /CUMM (4.8-10.8)
[2016-09-01] MEDS ORDERED: AUGMENTIN 875-1 EACH PO (09:28)
--- NOTE | 2016-09-01 09:32 | Patient Discharge Instructions ---
Discharge Instructions General Discharge Information You were seen/treated for: Kidney infection Watch for these problems: Recent fevers or chills Special Instructions: Please take all medications as directed. Please follow up with your PCP and urologist as directed Diet Continue normal diet: Yes Acute Coronary Syndrome Inclusion Criteria At DC or during hospital stay patient has or had the following: ACS DIAGNOSIS No Discharge Core Measures Meds if any: Prescribed or Continued at Discharge Meds if any: NOT Prescribed or Continued at Discharge Congestive Heart Failure Inclusion Criteria At DC or during hospital stay patient has or had the following: CHF DIAGNOSIS No Discharge Core Measures Meds if any: Prescribed or Continued at Discharge Meds if any: NOT Prescribed or Continued at Discharge Cerebrovascular accident Inclusion Criteria At DC or during hospital stay patient has or had the following: CVA/TIA Diagnosis No Discharge Core Measures Meds if any: Prescribed or Continued at Discharge Meds if any: NOT Prescribed or Continued at Discharge Venous thromboembolism Inclusion Criteria VTE Diagnosis No VTE Type NONE VTE Confirmed by (Test) NONE Discharge Core Measures - Per Current guidelines, there needs to be overlap - treatment for the first 5 days of Warfarin therapy. - If discharged on Warfarin prior to 5 days of - overlap therapy, the patient will need to be - assessed for post discharge needs including - *Post discharge parental anticoagulation - *Warfarin and/or parental anticoagulation education - *Follow up date to check INR post discharge At least 5 days overlap therapy as Inpatient No Meds if any: Prescribed or Continued at Discharge Note: Overlap Therapy is Warfarin and Anticoagulant Meds if any: NOT Prescribed or Continued at Discharge
--- NOTE | 2016-09-01 11:57 | Discharge Summary ---
Visit Information Visit Dates Admission Date: 08/29/16 Discharge Date: 09/01/2016 Hospital Course Course Attending Physician: ROSEMARIE BRAND MD Primary Care Physician: NICA MARISCAL MD Hospital Course: Mr. Yadav is a 71 year old male with PMH of HTN, HLD, DM, multiple UTI's in the past 6 weeks admitted to the floor for UTI. His first UTI ever was 6 weeks ago. He got a short course of Bactrim it seems. It recurred a few weeks later. He received another course of antibiotics. It has since recurred and that is why he came here. It is unclear why he has had 3 UTIs in the past 6 weeks after not having UTIs his whole life. He is on an SGLT 2 inhibitor that may increase glucose secretion in the urine. Perhaps this provided a medium for bacteria that was not killed by previous courses of antibiotics. However he did not start this drug until after August 26. On arrival to the emergency department, he was found to be febrile and hypotensive. He was also tachycardic. This resolved after fluid resuscitation. His labs were significant for a white blood cell count of 19,000 was remarkable for positive leukocyte esterase and nitrite negative, 50-75 white blood cells. Urinary glucose was significantly elevated greater than 1000. Lactic acid was 3.1. Chest x-ray was unremarkable. CT of the abdomen and pelvis without contrast revealed bilateral right greater than left stranding of the kidneys. Blood and urine cultures were drawn. The urine cultures grew Escherichia coli that is pansensitive. He was admitted to the [facility] floor and started on ceftriaxone for pyelonephritis. He did spike several fevers but continued to improve clinically otherwise. He is now feeling much better and ready to go home. #Pyelonephritis. Despite spiking fever to 101.7 the previous night before discharge, he continues to improve clinically. His white blood cell count has also come down. It is unclear why he has had 3 UTIs in the past 6 weeks. It may be that he was not adequately treated for this UTI initially. Also, the jardiance may have provided a glucose rich medium for the bacteria to regrow in the urine. He should stop this medication and follow up with his primary care provider for further care of his diabetes. -Continue ceftriaxone. Discharge with augmentin for 14 days. -Pt has an appointment with Urology in September #Lactic acidosis - Resolved with IV fluid hydration. #FAWN - resolved with IV fluid hydration. #Chronic medical problems: Diabetes, hyperlipidemia, hypertension. -oral hypoglycemics were held -Pt is placed on sliding scale insulin -Statin was continued -Held lisinopril due to FAWN. Allergies: Coded Allergies: No Known Allergies (08/29/16) Disposition Summary Disposition Principal Diagnosis: Complicated urinary tract infection Additional Diagnosis: Diabetes, hypertension, hyperlipidemia Discharge Disposition: home or self care Discharge Instructions General Discharge Information Code Status: Full Code Patient's Diet: Diabetic diet Patient's Activity: Advance as tolerated Follow-Up Instructions/Appts: Please follow up with her PCP Dr. Mariscal in one week. He should also see the urologist for follow-up of the UTI. Please take all medications as directed. Medications at Discharge Discharge Medications: Stop taking the following medications: Empagliflozin (Jardiance) 10 MG TABLET ORAL DAILY Qty = 30 Continue taking these medications: Atorvastatin Calcium (Atorvastatin Calcium) 10 MG TABLET 1 Tablet ORAL DAILY Qty = 90 Comments: Last Taken: 08/31/16 Time: 5:00 PM Lisinopril (Lisinopril) 20 MG TABLET 1 Tablet ORAL DAILY Qty = 90 Comments: NOT GIVEN IN HOSPITAL Metformin HCl (Metformin HCl ER) 500 MG TAB.ER.24H 2 Tablet ORAL TWICE DAILY Qty = 450 Comments: NOT GIVEN IN HOSPITAL Aspirin (Ecotrin*) 81 MG TABLET.DR 1 Tablet ORAL DAILY Comments: Last Taken: 09/01/16 Time: 0930 AM Glipizide (Glucotrol XL) 10 MG TAB.ER.24 1 Tablet ORAL DAILY Comments: NOT GIVEN IN HOSPITAL Pioglitazone HCl (Actos) 30 MG TABLET 1 Tablet ORAL DAILY Comments: NOT GIVEN IN HOSPITAL Multivitamin (Daily Multiple Vitamin) 1 EACH TABLET 1 Tablet ORAL DAILY Comments: Last Taken: 09/01/16 Time: 0930 AM Ascorbate Calcium (Vitamin C) 500 MG TABLET 1 Tablet ORAL TWICE DAILY Comments: Last Taken: 09/01/16 Time: 0930 AM Fish Oil/Borage/Flax/Om3,6,9#1 (Sneads 3-6-9 1,200 MG Softgel) 1,200 MG CAPSULE 1 Capsule ORAL DAILY Comments: Last Taken: 09/01/16 Time: 0930 AM Selenium (Selenium) 100 MCG TABLET 1 Tablet ORAL DAILY Comments: NOT GIVEN IN HOSPITAL Start taking the following new medications: Amoxicillin/Potassium Clav (Augmentin 875-125 Tablet) 875 MG-125 MG TABLET 1 Tablet ORAL TWICE DAILY Qty = 28 No Refills Comments: PATIENT ON IV ABX IN HOSPITAL DID NOT RECEIVE IN HOSPITAL Copies To: LOIDA YUEN,NICA Lawrence Attending MD Review Statement Documenting Attending: ROSEMARIE BRAND MD
== END 2016-09-01 12:37 | DRG 872 ==
LOC: ERH 15:46 → 2NB 20:33 → ERHI 20:33 → CANRESERV 21:36 → ENRESERV 21:36 → EDBEDREQ 22:29 → ERHI 22:31 → ENRESERV 22:46 → 2NB 23:26 → ENPENDDIS 09-01 10:35 → 2NB 09-01 12:37
PROVIDERS: Internal Medicine; Internal Medicine Cardiovascular Disease; Physician Assistant Medical; Preventive Medicine Public Health & General Preventive Medicine; ADMIT Internal Medicine
DX: A41.9 Sepsis, unspecified organism (principal); N17.9 Acute kidney failure, unspecified; E87.2 Acidosis; N10 Acute pyelonephritis; E11.9 Type 2 diabetes mellitus without complications; B96.20 Unspecified Escherichia coli [E. coli] as the cause of diseases classified elsewhere; I10 Essential (primary) hypertension; E78.5 Hyperlipidemia, unspecified; Z79.84 Long term (current) use of oral hypoglycemic drugs; R65.20 Severe sepsis without septic shock
CPT/HCPCS: 2NBP; 2NBSP; 86618; 36415; 74176; 81001; 82436; 87040; 87086; 93005; 93010; 96361; 96365; 96375; J0131; J0696

== ENCOUNTER 2016-09-19 03:27 | Observation (INO) | payer OTHER, MEDICARE ==
[~2016-09-19] VITALS: Ht 182.9 cm; Wt 90.7 kg
[~2016-09-19 03:27] MED LIST changes: +ACTOS30 M1 PO; +AUGMENTIN 875-1 EACH PO; +DAILY MULTIPLE1 EACH PO; +GLUCOTROL XL10 MG PO; +JARDIANCE10 M1 PO; +OMEGA 3-6-9 11200 MG PO; +SELENIUM100 MCG PO; +VITAMIN C500 M6 PO
--- NOTE | 2016-09-19 03:35 | NUR ---
71yo male to triage w/co blood in urine this am. States recently inpt here for kidney infection and just finished augmentin on
--- NOTE | 2016-09-19 04:25 | ED GI/GU/ABDOMINAL COMPLAINT ---
History of Present Illness General Chief Complaint: Male Genitourinary Problems Stated Complaint: BLOOD IN URINE PER PT Source: patient, family, old records Exam Limitations: no limitations Vital Signs & Intake/Output Vital Signs & Intake/Output Vital Signs Date Time Temp Pulse Resp B/P B/P Pulse O2 O2 Flow FiO2 Mean Ox Delivery Rate 09/19 0517 98 Room Air 09/19 0336 96.9 80 16 146/73 99 Room Air Room Air Allergies Coded Allergies: No Known Allergies (08/29/16) Reconcile Medications Amoxicillin/Potassium Clav (Augmentin 875-125 Tablet) 875 MG-125 MG TABLET 1 TAB PO BID Kidney infection Ascorbate Calcium (Vitamin C) 500 MG TABLET 1 TAB PO BID SUPPLEMENT (Reported ) Aspirin (Ecotrin*) 81 MG TABLET.DR 1 TAB PO DAILY HEART/BLOOD (Reported) Atorvastatin Calcium 10 MG TABLET 1 TAB PO DAILY CHOLESTEROL (Reported) Fish Oil/Borage/Flax/Om3,6,9#1 ([place] 3-6-9 1,200 MG Softgel) 1,200 MG CAPSULE 1 CAP PO DAILY SUPPLEMENT (Reported) Glipizide (Glucotrol XL) 10 MG TAB.ER.24 1 TAB PO DAILY DM (Reported) Lisinopril 20 MG TABLET 1 TAB PO DAILY BP (Reported) Metformin HCl (Metformin HCl ER) 500 MG TAB.ER.24H 2 TAB PO BID DM (Reported) Multivitamin (Daily Multiple Vitamin) 1 EACH TABLET 1 TAB PO DAILY SUPPLEMENT (Reported) Pioglitazone HCl (Actos) 30 MG TABLET 1 TAB PO DAILY DM (Reported) Selenium 100 MCG TABLET 1 TAB PO DAILY SUPPLEMENT (Reported) Triage Note: 71yo male to triage w/co blood in urine this am. States recently inpt here for kidney infection and just finished augmentin on Triage Nurses Notes Reviewed? yes Onset: Just prior to arrival Duration: minute(s):, constant, continues in ED Timing: recent history Quality/Severity: moderate, bleeding Radiation: no radiation Activities at Onset: urinating Prior Abdominal Problems: none Sexually Active: Yes Last Time You Were Sexual: less than 2 months ago Sexual Orientation: Heterosexual Use of Protection: No HPI: 3 weeks prior to admission patient was admitted for sepsis of urologic origin. Prior to admission he reports having bloody urine. He denies fever chills nausea vomiting diarrhea abdominal pain chest pain shortness breath headache dysuria rash bleeding. Past History Travel History Traveled to [place] past 21 day No Medical History Any Pertinent Medical History? 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 Relation not specified for: *No pertinent family history Hx Contributory? Yes Review of Systems Review of Systems Constitutional: Reports: no symptoms. EENTM: Reports: no symptoms. Respiratory: Reports: no symptoms. Cardiovascular: Reports: no symptoms. GI: Reports: no symptoms. Genitourinary: Reports: see HPI, hematuria. Musculoskeletal: Reports: no symptoms. Skin: Reports: no symptoms. Neurological/Psychological: Reports: no symptoms. Hematologic/Endocrine: Reports: no symptoms. Immunologic/Allergic: Reports: no symptoms. All Other Systems: Reviewed and Negative Physical Exam Physical Exam General Appearance: well developed/nourished, alert, awake, anxious, mild distress Head: atraumatic, normal appearance Eyes: Bilateral: normal appearance, PERRL, EOMI, normal inspection. Ears, Nose, Throat, Mouth: hearing grossly normal, moist mucous membrane Neck: normal inspection, supple, full range of motion, normal alignment, no midline tenderness Respiratory: normal breath sounds, chest non-tender, no respiratory distress, quiet respiration, lungs clear Cardiovascular: regular rate/rhythm, normal peripheral pulses, norml femoral pulses equa Peripheral Pulses: 4+ carotid (R), 4+ carotid (L) Gastrointestinal: normal bowel sounds, soft, non-tender, no organomegaly Male Genitals: normal genitalia Back: normal inspection, normal range of motion Extremities: normal range of motion, no ligament instability Neurologic/Psych: no motor/sensory deficits, awake, alert, oriented x 3, normal gait, normal mood/affect Skin: intact, normal color, warm/dry Core Measures ACS in differential dx? No Severe Sepsis Present: No Septic Shock Present: No Progress Differential Diagnosis: UTI/pyelo Plan of Care: Orders Procedure Date/time Status Consistent Carbohydrate 09/19 B Active Add-on Test (ER Only) 09/19 0707 Active Patient Data 09/19 0648 Active FingerStick- Glucose 09/19 0548 Active Intake & Output 09/19 0516 Active OXYGEN SETUP (GEN) 09/19 05 Active Saline Lock 09/[address] in observation 09/19 0515 Active Vital Signs 09/19 514 Active Activity/Ambulation 09/19 514 Active Code Status 09/19 514 Active COMPREHENSIVE METABOLIC PANEL 09/19 041 Complete CBC WITHOUT DIFFERENTIAL 09/19 409 Complete URINALYSIS 09/19 0348 Complete Laboratory Tests 09/19/16 0431: Anion Gap 10, Estimated GFR 55 L, BUN/Creatinine Ratio 20.0, Glucose 218 H, Calcium 9.6, Total Bilirubin 0.8, AST 16 L, ALT 29, Alkaline Phosphatase 54, Total Protein 6.6, Albumin 4.2, Globulin 2.4, Albumin/Globulin Ratio 1.8, CBC w Diff NO MAN DIFF REQ, RBC 4.31 L, MCV 86.9, MCH 28.9, RDW 15.0 H, MPV 7.8, Gran % 86.9 H, Lymphocytes % 6.1 L, Monocytes % 5.4, Eosinophils % 1.3, Basophils % 0.3, Absolute Granulocytes 9.9 H, Absolute Lymphocytes 0.7 L, Absolute Monocytes 0.6, Absolute Eosinophils 0.2, Absolute Basophils 0, PUBS MCHC 33.2 09/19/16 0350: Urine Color BLDY H, Urine Clarity TURBD H, Urine pH 5.0, Ur Specific [place] 1.020, Urine Protein >=300 H, Urine Ketones 15 H, Urine Nitrite POS H, Urine Bilirubin NEG@ICTO, Urine Urobilinogen 2.0 H, Ur Leukocyte Esterase LARGE H, Ur Microscopic SEDIMENT EXAMINED, Urine RBC PACKD H, Urine WBC 15-25 H, Urine Bacteria FEW H, Urine Hemoglobin LARGE H, Urine Glucose NEG Initial ED EKG: none Departure Departure Time of Disposition: 0500 Disposition: STILL A PATIENT Condition: Stable Clinical Impression Primary Impression: UTI (urinary tract infection) Qualifiers: Urinary tract infection type: site unspecified Hematuria presence: with hematuria Qualified Codes: N39.0 - Urinary tract infection, site not specified; R31.9 - Hematuria, unspecified Referrals: LOIDA YUEN,NICA Lawrence (PCP/Family) Departure Forms: Customer Survey General Discharge Information Observation Note Spoke With: ELIZABETH YUEN,ONEL Tse Physician Advisor Notified: LAKISHA ALLEN DO Place Patient In: Non-ED OBS Care Area Rationale for Observation: My rational for observation is as follows recent history of multiple UTIs sepsis of urologic origin off antibiotics for 3 days with recurrent UTI requiring IV antibiotics serial lab exam.
[2016-09-19 04:40] LABS: ABSOLUTE BASOPHIL COUNT 0 /CUMM (0.0-0.2); ABSOLUTE EOSINOPHIL COUNT 0.2 /CUMM (0.0-0.7); ABSOLUTE GRANULOCYTE CT 9.9 /CUMM (1.4-6.5); ABSOLUTE LYMPH COUNT 0.7 /CUMM (1.2-3.4); ABSOLUTE MONOCYTE COUNT 0.6 /CUMM (0.10-0.60); BASOPHIL % 0.3 % (0.0-2.0); EOSINOPHIL % 1.3 % (0-5); GRANULOCYTE % 86.9 % (42.2-75.2); HEMATOCRIT 37.5 % (42-52); MEAN CORPUSCULAR HGB 28.9 PG (27.0-31.0); MEAN CORPUSCULAR HGB CONC 33.2 G/DL (33.0-37.0); MEAN CORPUSCULAR VOLUME 86.9 FL (80.0-94.0); MEAN PLATELET VOLUME 7.8 FL (7.4-10.4); PLATELET COUNT 197 /CUMM (130-400); RED BLOOD CELL CT 4.31 /CUMM (4.70-6.10); WHITE BLOOD CELL COUNT 11.3 /CUMM (4.8-10.8)
--- NOTE | 2016-09-19 05:16 | NUR ---
THIS RN ESTABLISHED IV ACCESS IN RFA #20.
--- NOTE | 2016-09-19 05:23 | NUR ---
PT MEDICATED WITH LITER #1 NS A BOLUS AND 1G ROCEPHIN PER EMAR.
--- NOTE | 2016-09-19 05:48 | NUR ---
PT ASKED TO CHANGE INTO GOWN AND PT STATED HE WOULD LIKE TO CHANGE UPSTAIRS WHEN HE GETS THERE BECAUSE "IM GOING TO CONTINUE TO GO TO THE BATHROOM BACK AND FORTH AND I WOULD RATHER NOT SHOW MY BEHIND TO EVERYONE" PT COMPLETELY INDEPENDENT.
--- NOTE | 2016-09-19 06:38 | NUR ---
PT AMBULATED TO THE BATHROOM MULTIPLE TIME WITH STREADY GAIT.
--- NOTE | 2016-09-19 07:51 | NUR ---
PT WAITING FOR ROOM ASSIGNMENT
--- NOTE | 2016-09-19 08:12 | NUR ---
BED ASSIGNMENT 224-2
--- NOTE | 2016-09-19 08:33 | NUR ---
PT RESTING COMFORTABLE DOES NOT WISH TO CHANGE IN TO GOWN AT THIS TIME STATES HE IS GOING BACK AND FORTH TO THE BR AND WOULD LIKE TO STAY DRESSED STATES HE WILL CHANGE ONCE HE GETS TO THE FLOOR
--- NOTE | 2016-09-19 08:57 | History & Physical ---
TRACY YUEN,VIKKI 09/19/16 0855: General Information and HPI MD Statement: I have seen and personally examined FRANCISCO BURDICK and documented this H&P. The patient is a 71 year old M who presented with a patient stated chief complaint of [blood in urine]. Source of Information: patient, family, old records Exam Limitations: no limitations History of Present Illness: Patient is a 71 YO M with PMH significant for HTN, HLD, Diabetic (on oral hypoglycemics), multiple UTI's for the past 6 weeks came to [place] ER after noticing blood in urine. Patient was recently discharged with a course of Augmentin after receiving inpatient treatment for pyelonephritis. He completed his course by last thursday morning. Previous episode is presumably worse due to recent empagliflozin intake which was discontinued at discharge. After discharge he remained asymptomatic till today morning. He did have 2 episodes of intercouse after discharge (last being thursday). Reportedly hydrating well, compliant with medications, denies any urethral discharge, history of renal stones. Today morning he started to notice blood in urine with 2-3 small clots with burning sensation, prompted him to worry about another episode of UTI, came to ER for further evaluation. He denies any nausea, vomiting, pain in abdomen, fevers before coming to ER. He denies any problems with urinary stream intiation /maintaining.He checks his sugars twice a week which were in 160-170, he is diabetic for the past 15yrs. In the ER he received on dose of ceftriaxone, 1L NS so far. He reports his urine is much clear and yellowish now. He is presenting with blood in urine for the first time with small clots. He had a total of 3 episodes of urine with blood prior to ER visit. During his previous UTI's he never had any hemturia. His cultures were so far pansensitive, grew enterococcus and E.coli in the past, responded well to bactrim, augmentin. He is off antimcrobials for the past 3days. 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 Surgical history is significant for a L3L4 spinal repair at which time he had a loss of bladder function, regained after the surgery and briefly followed up with after that. (many yrs ago) Denies any smoking/drug intake. Socially drinks wine. Physicians PCP - Registrar Assistant - Dr. Seymour Urologist - . Allergies/Medications Allergies: Coded Allergies: No Known Allergies (08/29/16) Home Med list Ascorbate Calcium (Vitamin C) 500 MG TABLET 1 TAB PO BID SUPPLEMENT (Reported ) Aspirin (Ecotrin*) 81 MG TABLET.DR 1 TAB PO DAILY HEART/BLOOD (Reported) Atorvastatin Calcium 10 MG TABLET 1 TAB PO DAILY CHOLESTEROL (Reported) Fish Oil/Borage/Flax/Om3,6,9#1 ([place] 3-6-9 1,200 MG Softgel) 1,200 MG CAPSULE 1 CAP PO DAILY SUPPLEMENT (Reported) Glipizide (Glucotrol XL) 10 MG TAB.ER.24 1 TAB PO DAILY DM (Reported) Lisinopril 20 MG TABLET 1 TAB PO DAILY BP (Reported) Metformin HCl (Metformin HCl ER) 500 MG TAB.ER.24H 2 TAB PO BID DM (Reported) Multivitamin (Daily Multiple Vitamin) 1 EACH TABLET 1 TAB PO DAILY SUPPLEMENT (Reported) Pioglitazone HCl (Actos) 30 MG TABLET 1 TAB PO DAILY DM (Reported) Selenium 100 MCG TABLET 1 TAB PO DAILY SUPPLEMENT (Reported) Compliance With Home Meds: GOOD Observation Initial Note - I have personally examined FRANCISCO BURDICK on 09/19/16 at 0856. 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 Relation not specified for: *No pertinent family history Psychosocial History Where do you live? Home Who Do You Live With? spouse Services at Home: None Primary Language: Macedonian Smoking Status: Never Smoked ETOH Use: occasional use Illicit Drug Use: denies illicit drug use Functional Ability ADLs Independent: dressing, eating, toileting, bathing. Ambulation: independent IADLs Independent: shopping, housework, finances, food prep, telephone, transportation , medication admin. Sexual History Sexually Active Yes Sexual Orientation Heterosexual Use of Protection No Employment History Past Employment History Unobtainable at this time Employment Retired Review of Systems Review of Systems Constitutional: Reports: see HPI. EENTM: Reports: no symptoms. Cardiovascular: Reports: no symptoms. Respiratory: Reports: no symptoms. GI: Reports: no symptoms. Genitourinary: Reports: frequency, hematuria, nocturia. Musculoskeletal: Reports: no symptoms. Skin: Reports: no symptoms. Neurological/Psychological: Reports: no symptoms. Exam & Diagnostic Data Last 24 Hrs of Vital Signs/I&O Vital Signs Date Time Temp Pulse Resp B/P B/P Pulse O2 O2 Flow FiO2 Mean Ox Delivery Rate 09/19 0838 70 125/66 09/19 0731 97.8 77 22 133/61 100 Room Air 09/19 0517 98 Room Air 09/19 0336 96.9 80 16 146/73 99 Room Air Room Air Intake & Output 09/19 1600 09/19 0800 09/19 0000 Intake Total Output Total Balance Patient 90.718 kg 90.718 kg Weight Weight Reported by Patient Measurement Method Physical Exam General Appearance Alert, Oriented X3, Cooperative, No Acute Distress Skin No Rashes, No Breakdown Skin Temp/Moisture Exam: Warm/Dry HEENT Atraumatic, PERRLA, EOMI Neck Supple Cardiovascular Normal S1, Normal S2, No Murmurs Lungs Clear to Auscultation, Normal Air Movement Abdomen Normal Bowel Sounds, Soft, No Tenderness Neurological Normal Gait, Normal Speech, Normal Tone Extremities No Clubbing, No Cyanosis, No Edema Vascular Normal Pulses, Pulses Symmetrical Last 24 Hrs of Labs/Donaldo: Laboratory Tests 09/19/16 0431: Anion Gap 10, Estimated GFR 55 L, BUN/Creatinine Ratio 20.0, Glucose 218 H, Calcium 9.6, Total Bilirubin 0.8, AST 16 L, ALT 29, Alkaline Phosphatase 54, Total Protein 6.6, Albumin 4.2, Globulin 2.4, Albumin/Globulin Ratio 1.8, CBC w Diff NO MAN DIFF REQ, RBC 4.31 L, MCV 86.9, MCH 28.9, RDW 15.0 H, MPV 7.8, Gran % 86.9 H, Lymphocytes % 6.1 L, Monocytes % 5.4, Eosinophils % 1.3, Basophils % 0.3, Absolute Granulocytes 9.9 H, Absolute Lymphocytes 0.7 L, Absolute Monocytes 0.6, Absolute Eosinophils 0.2, Absolute Basophils 0, PUBS MCHC 33.2 09/19/16 0350: Urine Color BLDY H, Urine Clarity TURBD H, Urine pH 5.0, Ur Specific [place] 1.020, Urine Protein >=300 H, Urine Ketones 15 H, Urine Nitrite POS H, Urine Bilirubin NEG@ICTO, Urine Urobilinogen 2.0 H, Ur Leukocyte Esterase LARGE H, Ur Microscopic SEDIMENT EXAMINED, Urine RBC PACKD H, Urine WBC 15-25 H, Urine Bacteria FEW H, Urine Hemoglobin LARGE H, Urine Glucose NEG Microbiology 09/19 349 URINE ROUT: Urine Culture - RECD Assessment/Plan Assessment: Patient is a 71 YO M with long standing diabetes, recent recurrent UTI's, nonsmoker without any previous history of nephrolithiasis presented with a hematuria and clots this am. He received a single dose of ceftriaxone, 1L NS in ER. His hematuria resolved and he remianed afebrile without any signs of infection except burning which apparently resolved after coming to ER. Vitals are stable in ER with T of 97.8, Pulse 77, BP 133/61mmHg, on room air. Labs are notable for white count of 11, Cr of 1.3 with GFR of 55. UA shows bloody turbid urine, packed RBC, WBC, LE +ve. Differntials 1. Inflammatory cystits - recurrent infections 2. Malignancy - given family history of renal cancer in father (at 69yrs) and renal cyst in right lower pole in recent imaging. 3. Bleeding diathesis - Patient is on aspirin for a long time (never had a prior episodes) 4. Diabetes related - long standing diabetes history with CKD picture. Plan 1. We would like to place the patient in observation to certainly rule out infection in the first place - Please follow up urine culture. 2. further evaluation of hematuria - Urology consult placed to for possible cystoscopy 3. No antibiotics for now - infection very less likely 4. Continue other home medications including antihypertensives, atrovastatin, aspirin 5. Alps for DVT prophylaxis 6. patient is a full code As Ranked By This Provider Problem List: 1. Urinary tract infection Qualifiers Urinary tract infection type: site unspecified Hematuria presence: with hematuria Qualified Codes: N39.0 - Urinary tract infection, site not specified; R31.9 - Hematuria, unspecified Core Measures/Miscellaneous Acute Coronary Syndrome ACS Diagnosis: No Cerebrovascular Accident CVA/TIA Diagnosis: No Congestive Heart Failure CHF Diagnosis: No VTE (View Protocol) VTE Risk Factors: Age > 40 No Mech VTE prophylaxis d/t: No contraindications No VTE Pharm Prophylaxis d/t: No contraindications VTE Diagnosis: No VTE Type: NONE VTE Confirmed by (Test): NONE Sepsis (View Protocol) Severe Sepsis Present: No Septic Shock Septic Shock Present: No Miscellaneous Documentation Attending Case Discussed With: ONEL JOHNSON MD Primary Care Physician: NICA MARISCAL MD Patient sees these Specialists Level of Patient Care: General Medicine LUIS VIGIL MD 09/19/16 1100: Attending MD Review Statement Attending Statement Attending MD Statement: examined this patient, discuss w/resident/PA/B2B OUTSIDE SALES REPRESENTATIVE, agreed w/resident/PA/B2B OUTSIDE SALES REPRESENTATIVE, reviewed EMR data (avail), discussed with nursing, reviewed images Attending Assessment/Plan: 71-year-old male past medical history of hypertension, hyperlipidemia and diabetes who was recently here from August 29 to September 01 when he was treated for an Escherichia coli pyelonephritis and discharged to complete a total of 14 days of antibiotics. He grew a pansensitive Escherichia coli at that time in his urine and he just finished his course of Augmentin on September 16. He comes in today because he is worried about blood in his urine. He said he was feeling completely fine but then started noticing blood in the urine. Off note he's had about 3-4 urinary tract infections in the span of 6-8 weeks. He is being brought in as an observation. The ED has given ceftriaxone but I don't want to continue that as he has no fever, no white count and recently completed a course of antibiotics. I think he deserves a urological eval. He was scheduled to see the urologist as an outpatient but we called the urologist investor relations specialist Dr diana here. He does have significant hematuria on his UA with no obvious explanation for this. His most recent CT done in August does not show any calculi or mass. Will also check a urine cytology. His last UTI/Pyelo was also attributed to his new diabetic medicine Jardiance which has been known to increase the incidence of UTIs. For now will bring him in as an obs, watch his cultures, watch him for any clinical signs and symptoms of pyelonephritis and follow-up as per urology.
--- NOTE | 2016-09-19 09:00 | NUR ---
REPORT GIVEN TO HUMA QUACHSTATION SUPERINTENDENT AWARE
[2016-09-19 11:37] VITALS: BP 120/80
[2016-09-19 14:06] VITALS: BP 140/80
--- NOTE | 2016-09-19 19:08 | NUR ---
PATIENT ADMITTIED TO RM 224-2 FROM HOME. HE WAS RECENTLY EVALUATED IN ER FOR RECCURRENT UTI AND WAS GIVEN PO ABT. PATIENT REPORT HAVING INCREASE SYMPTOMS WITH PO ABT AND CAME BACK TO ER. HE IS ADMITTED 23 HOURS ABS FOR UTI/PYLONEPHRITIS. HE ALERT AND ORIENTATED X3. VSS. DENIES DISCOMFORT. INDEPENDENT OOB. ORIENTATED TO AND CALL LIGHT. WILL FOLLOW PLAN OF CARE.
--- NOTE | 2016-09-19 19:54 | Cons- Urology ---
General Information and HPI Consulting Request Date of Consult: 09/19/16 Requested By: LUIS Armenta MD Reason for Consult: recurrent UTI Source of Information: patient, old records Exam Limitations: no limitations History of Present Illness: This patient has had 3 UTI's over the last 6 weeks. Earlier this month he was admitted here with a febrile UTI and was felt to have pyelonephritis. He was treated with IV abx and then discharged on po abx. Three days after stopping the abx he developed dysuria and gross hematuria and presented to the ER here. Urine was suspicious for infection. He was given a dose of ceftriaxone and his gross hematuria has resolved and the dysuria has improved. On his last admission he had a CT of the abd and pelvis and no stones were seen. Findings were suspicious for pyelonephritis. He has no significant voiding sx' s and no hx of urinary stones. He has a urologist, Dr. Garcia in [place] and has an appointment with him this coming week. Allergies/Medications Allergies: Coded Allergies: No Known Allergies (08/29/16) Home Med List: Ascorbate Calcium (Vitamin C) 500 MG TABLET 1 TAB PO BID SUPPLEMENT (Reported ) Aspirin (Ecotrin*) 81 MG TABLET.DR 1 TAB PO DAILY HEART/BLOOD (Reported) Atorvastatin Calcium 10 MG TABLET 1 TAB PO DAILY CHOLESTEROL (Reported) Fish Oil/Borage/Flax/Om3,6,9#1 (Barnhart 3-6-9 1,200 MG Softgel) 1,200 MG CAPSULE 1 CAP PO DAILY SUPPLEMENT (Reported) Glipizide (Glucotrol XL) 10 MG TAB.ER.24 1 TAB PO DAILY DM (Reported) Lisinopril 20 MG TABLET 1 TAB PO DAILY BP (Reported) Metformin HCl (Metformin HCl ER) 500 MG TAB.ER.24H 2 TAB PO BID DM (Reported) Multivitamin (Daily Multiple Vitamin) 1 EACH TABLET 1 TAB PO DAILY SUPPLEMENT (Reported) Pioglitazone HCl (Actos) 30 MG TABLET 1 TAB PO DAILY DM (Reported) Selenium 100 MCG TABLET 1 TAB PO DAILY SUPPLEMENT (Reported) Current Medications: Current Medications Sig/Arlette Start time Last Medication Dose Route Stop Time Status Admin Acetaminophen 650 MG Q6P PRN 09/19 0845 AC PO Aspirin Buffered 81 MG DAILY 09/19 1000 AC 09/19 PO 1420 Atorvastatin Calcium 10 MG 1700 09/19 1700 AC 09/19 PO 1638 Ceftriaxone Sodium 0 .STK-MED ONE 09/19 0527 DC .ROUTE Ceftriaxone Sodium 1,000 MG ONCE ONE 09/19 0515 DC 09/19 IV 09/19 0516 0523 Fish Oil 1,050 MG DAILY 09/19 1000 AC 09/19 PO 1420 Ibuprofen 600 MG Q6P PRN 09/19 0845 AC PO Insulin Aspart 0 TIDAC 09/19 1200 AC 09/19 SC 1656 Lisinopril 20 MG DAILY 09/19 1000 AC 09/19 PO 1420 Multivitamins 1 TAB DAILY 09/19 1000 AC 09/19 Therapeutic PO 1420 Senna/Docusate Sodium 2 TAB AT BEDTIME 09/19 2200 AC PO Sodium Chloride 1,000 ML BOLUS ONE 09/19 0515 DC 09/19 IV 09/19 0514 05 Past History Medical History Blood Transfusion Hx: No Neurological: NONE EENT: NONE Cardiovascular: hypertension, hyperlipidemia Respiratory: NONE Gastrointestinal: NONE Hepatic: NONE Renal: UTI Musculoskeletal: NONE Psychiatric: NONE Endocrine: diabetes Blood Disorders: NONE Cancer(s): NONE NEUROLOGIST/Reproductive: NONE Surgical History Pertinent Surgical History: back surgery Family History Relations & Conditions If Any: FATHER (Renal cell caDM). Relation not specified for: *No pertinent family history Psychosocial History Where Do You Live? Home Who Do You Live With? spouse Services at Home: None Primary Language: Persian Smoking Status: Never Smoked ETOH Use: occasional use Illicit Drug Use: denies illicit drug use Functional Ability ADLs Independent: dressing, eating, toileting, bathing. Ambulation: independent IADLs Independent: shopping, housework, finances, food prep, telephone, transportation , medication admin. Employment History Employment: Retired Exam & Diagnostic Data Vital Signs and I&O Vital Signs Date Time Temp Pulse Resp B/P B/P Pulse O2 O2 Flow FiO2 Mean Ox Delivery Rate 09/19 1420 98.0 66 20 140/80 09/19 1406 98.0 66 20 140/80 99 Room Air 09/19 1137 99.5 74 20 120/80 98 Room Air 09/19 0838 70 125/66 09/19 0731 97.8 77 22 133/61 100 Room Air 09/19 0517 98 Room Air 09/19 0336 96.9 80 16 146/73 99 Room Air Room Air Intake & Output 07/09/19 0000 09/18 0000 Intake Total 500 Output Total Balance 500 Intake, Oral 500 Patient 200 lb 200 lb Weight Weight Reported by Patient Measurement Method No distress Back: No CVA tenderness Abd: soft and non tender Genitalia: normal male Laboratory Tests 09/19 09/19 0431 0350 Chemistry Sodium (137 - 145 mmol/L) 136 L Potassium (3.5 - 5.1 mmol/L) 4.8 Chloride (98 - 107 mmol/L) 98 Carbon Dioxide (22 - 30 mmol/L) 28 Anion Gap (5 - 16) 10 BUN (9 - 20 mg/dL) 26 H Creatinine (0.7 - 1.2 mg/dL) 1.3 H Estimated GFR (>60 ml/min) 55 L BUN/Creatinine Ratio (7 - 25 %) 20.0 Glucose (65 - 99 mg/dL) 218 H Calcium (8.4 - 10.2 mg/dL) 9.6 Total Bilirubin (0.2 - 1.3 mg/dL) 0.8 AST (17 - 59 U/L) 16 L ALT (21 - 72 U/L) 29 Alkaline Phosphatase (< 127 U/L) 54 Total Protein (6.3 - 8.2 g/dL) 6.6 Albumin (3.5 - 5.0 g/dL) 4.2 Globulin (1.9 - 4.2 gm/dL) 2.4 Albumin/Globulin Ratio (1.1 - 2.2 %) 1.8 Hematology CBC w Diff NO MAN DIFF REQ WBC (4.8 - 10.8 /CUMM) 11.3 H RBC (4.70 - 6.10 /CUMM) 4.31 L Hgb (14.0 - 18.0 G/DL) 12.4 L Hct (42 - 52 %) 37.5 L MCV (80.0 - 94.0 FL) 86.9 MCH (27.0 - 31.0 PG) 28.9 RDW (11.5 - 14.5 %) 15.0 H Plt Count (130 - 400 /CUMM) 197 MPV (7.4 - 10.4 FL) 7.8 Gran % (42.2 - 75.2 %) 86.9 H Lymphocytes % (20.5 - 51.1 %) 6.1 L Monocytes % (1.7 - 9.3 %) 5.4 Eosinophils % (0 - 5 %) 1.3 Basophils % (0.0 - 2.0 %) 0.3 Absolute Granulocytes (1.4 - 6.5 /CUMM) 9.9 H Absolute Lymphocytes (1.2 - 3.4 /CUMM) 0.7 L Absolute Monocytes (0.10 - 0.60 /CUMM) 0.6 Absolute Eosinophils (0.0 - 0.7 /CUMM) 0.2 Absolute Basophils (0.0 - 0.2 /CUMM) 0 PUBS MCHC (33.0 - 37.0 G/DL) 33.2 Urines Urine Color (YEL,AMB,STR) BLDY H Urine Clarity (CLEAR) TURBD H Urine pH (5.0 - 8.0) 5.0 Ur Specific [place] (1.001 - 1.035) 1.020 Urine Protein (NEG,<30 MG/DL) >=300 H Urine Ketones (NEG) 15 H Urine Nitrite (NEG) POS H Urine Bilirubin (NEG) NEG@ICTO Urine Urobilinogen (0.1 - 1.0 EU/dl) 2.0 H Ur Leukocyte Esterase (NEG) LARGE H Ur Microscopic SEDIMENT EXAMINED Urine RBC (0 - 5 /HPF) PACKD H Urine WBC (0 - 2 /HPF) 15-25 H Urine Bacteria (NEG/NONE) FEW H Urine Hemoglobin (NEG) LARGE H Urine Glucose (N MG/DL) NEG Assessment/Plan Assessment/Plan Imp: 1. Recurrent UTI with CT scan showing no stones 2 Gross hematuria, likely related to UTI but other causes not ruled out Plan: 1. f/u urine C&S 2. Can likely go home tomorrow on po abx 3. Pt should have cystoscopy while on abx. He will f/u with his usual urologist for this next week. Consult Acknowledgment - Thank you for your consult request.
[2016-09-19 22:56] VITALS: BP 110/60
[2016-09-20 06:00] VITALS: BP 128/72
[2016-09-20 08:44] LABS: ABSOLUTE BASOPHIL COUNT 0 /CUMM (0.0-0.2); ABSOLUTE EOSINOPHIL COUNT 0.2 /CUMM (0.0-0.7); ABSOLUTE GRANULOCYTE CT 4.2 /CUMM (1.4-6.5); ABSOLUTE MONOCYTE COUNT 0.4 /CUMM (0.10-0.60); BASOPHIL % 0.3 % (0.0-2.0); EOSINOPHIL % 2.7 % (0-5); GRANULOCYTE % 72.2 % (42.2-75.2); HEMATOCRIT 37.8 % (42-52); MEAN CORPUSCULAR HGB 29.3 PG (27.0-31.0); MEAN CORPUSCULAR HGB CONC 33.6 G/DL (33.0-37.0); MEAN CORPUSCULAR VOLUME 87.1 FL (80.0-94.0); MEAN PLATELET VOLUME 7.7 FL (7.4-10.4); PLATELET COUNT 193 /CUMM (130-400); RBC DISTRIBUTION WIDTH 14.7 % (11.5-14.5); RED BLOOD CELL CT 4.34 /CUMM (4.70-6.10); WHITE BLOOD CELL COUNT 5.8 /CUMM (4.8-10.8)
[2016-09-20 10:09] VITALS: BP 122/80
--- NOTE | 2016-09-20 10:40 | PN- Housestaff ---
JOSE DE LEON 09/20/16 1039: Subjective Follow-up For: Recurrent urinary tract infection Complaints: no complaints Subjective: The patient was seen and examined this morning. He was lying comfortably in bed without any complaints. He denied any hematuria. We will send him home on oral Augmentin and he will follow-up with his urologist on Thursday. Review of Systems Constitutional: Denies: diaphoresis. Respiratory: Denies: orthopnea. Gastrointestinal: Denies: diarrhea, distention. Genitourinary: Reports: dysuria. Denies: frequency, hematuria. Musculoskeletal: Denies: back pain, gout, joint pain. Objective Last 24 Hrs of Vital Signs/I&O Vital Signs Date Time Temp Pulse Resp B/P B/P Pulse O2 O2 Flow FiO2 Mean Ox Delivery Rate 09/20 1009 84 122/80 09/20 0600 98.1 63 18 128/72 96 Room Air 09/19 2256 98.1 67 20 110/60 95 Room Air 09/19 1420 98.0 66 20 140/80 09/19 1406 98.0 66 20 140/80 99 Room Air 09/19 1137 99.5 74 20 120/80 98 Room Air Intake & Output 09/20 1600 09/20 0800 09/20 0000 Intake Total 200 100 Output Total Balance 200 100 Intake, Oral 200 100 Physical Exam General Appearance: Alert, Oriented X3, Cooperative, No Acute Distress Cardiovascular: Regular Rate, Normal S1, Normal S2 Lungs: Normal Air Movement Abdomen: Soft, No Tenderness Current Medications: Current Medications Sig/Arlette Start time Last Medication Dose Route Stop Time Status Admin Acetaminophen 650 MG Q6P PRN 09/19 0845 AC PO Aspirin Buffered 81 MG DAILY 09/19 1000 AC 09/20 PO 1004 Atorvastatin Calcium 10 MG 1700 09/19 1700 AC 09/19 PO 1638 Fish Oil 1,050 MG DAILY 09/19 1000 AC 09/20 PO 1003 Ibuprofen 600 MG Q6P PRN 09/19 0845 AC PO Insulin Aspart 0 TIDAC 09/19 1200 AC 09/20 SC 0820 Lisinopril 20 MG DAILY 09/19 1000 AC 09/20 PO 1009 Multivitamins 1 TAB DAILY 09/19 1000 AC 09/20 Therapeutic PO 1004 Senna/Docusate Sodium 2 TAB AT BEDTIME 09/19 2200 AC PO Last 24 Hrs of Lab/Donaldo Results Last 24 Hrs of Labs/Mics: Laboratory Tests 09/20/16 0815: Anion Gap 10, Estimated GFR > 60, BUN/Creatinine Ratio 16.0, CBC w Diff NO MAN DIFF REQ, RBC 4.34 L, MCV 87.1, MCH 29.3, RDW 14.7 H, MPV 7.7, Gran % 72.2, Lymphocytes % 17.2 L, Monocytes % 7.6, Eosinophils % 2.7, Basophils % 0.3, Absolute Granulocytes 4.2, Absolute Lymphocytes 1.0 L, Absolute Monocytes 0.4, Absolute Eosinophils 0.2, Absolute Basophils 0, PUBS MCHC 33.6 Assessment/Plan Assessment: Patient is a 71-year-old male with past medical history significant for hypertension, hyperlipidemia, diabetes is admitted with recent history of recurrent UTI and currently treated for UTI suspicion for pyelonephritis. Patient was observed on general medical floor and was taken care for the following problems Problem list 1. Inflammatory cystitis/pyelonephritis/malignancy needs cystoscopy by his urologist in [place] 2. Diabetes mellitus 3. Hyperlipidemia 4. Recurrent UTIs Plan Patient was seen by urology yesterday and as patient has his own urologist in [place] Dr. Rosas and he has follow-up appointment on Thursday with him. Patient was instructed to follow-up with him on Thursday for further management and plan for cystoscopy. Patient was started on Augmentin and he will continue for 7 days and he would have his cystoscopy while he would be on Augmentin. We will discharge patient home today with instruction to follow-up with urology as outpatient and continue antibiotics Heart healthy diet Patient is full code Alps for DVT prophylaxis Problem List: 1. Urinary tract infection Pain Ratin Pain Location: NA Pain Goal: Remain pain free Pain Plan: TYLENOL Tomorrow's Labs & Rationales: NONE BISI YUEN,LYNNER 09/20/16 1108: Attending MD Review Statement Attending Statement Attending MD Statement: examined this patient, discuss w/resident/PA/FULLING MILL OPERATOR, agreed w/resident/PA/FULLING MILL OPERATOR, reviewed EMR data (avail), discussed with nursing Attending Assessment/Plan: Mr. Yadav was seen by me. chart reviewed. Currently reports doing better and wants to go home. Denies any dysuria or hematuria. Was evaluated by Urology. VSS Labs: reviewed A/P: pt was evaluated by Urology. OK to d/c home on Augmentin, f/u urine C&S. Pt has an appt with private Urologist on Thursday. Will likely need Cysto -- pt agree with the plan
[2016-09-20] MEDS ORDERED: AUGMENTIN 875-1 EACH PO (11:06)
--- NOTE | 2016-09-20 11:09 | Patient Discharge Instructions ---
Discharge Instructions General Discharge Information You were seen/treated for: Urinary tract infection Special Instructions: Please follow-up with your urologist Dr. Rosas in 1 week Please follow-up with your PCP in 1 week Please take medications as directed Diet Continue normal diet: Yes Activity Additional ACTIVITY Info: As tolerated Acute Coronary Syndrome Inclusion Criteria At DC or during hospital stay patient has or had the following: ACS DIAGNOSIS No Discharge Core Measures Meds if any: Prescribed or Continued at Discharge Meds if any: NOT Prescribed or Continued at Discharge Congestive Heart Failure Inclusion Criteria At DC or during hospital stay patient has or had the following: CHF DIAGNOSIS No Discharge Core Measures Meds if any: Prescribed or Continued at Discharge Meds if any: NOT Prescribed or Continued at Discharge Cerebrovascular accident Inclusion Criteria At DC or during hospital stay patient has or had the following: CVA/TIA Diagnosis No Discharge Core Measures Meds if any: Prescribed or Continued at Discharge Meds if any: NOT Prescribed or Continued at Discharge Venous thromboembolism Inclusion Criteria VTE Diagnosis No VTE Type NONE VTE Confirmed by (Test) NONE Discharge Core Measures - Per Current guidelines, there needs to be overlap - treatment for the first 5 days of Warfarin therapy. - If discharged on Warfarin prior to 5 days of - overlap therapy, the patient will need to be - assessed for post discharge needs including - *Post discharge parental anticoagulation - *Warfarin and/or parental anticoagulation education - *Follow up date to check INR post discharge At least 5 days overlap therapy as Inpatient No Meds if any: Prescribed or Continued at Discharge Note: Overlap Therapy is Warfarin and Anticoagulant Meds if any: NOT Prescribed or Continued at Discharge
== END 2016-09-20 13:04 ==
LOC: ERH 03:27 → ERHI 05:15 → 2NA 05:15 → ENRESERV 08:11 → ENTRNSPT 09:01 → EDTRNSPTSTS 09:30 → EDTRNSPT 09:30 → 2NA 09:39 → CMPTRNSPT 09:46 → 2NA 11:33 → ENPENDDIS 09-20 11:13 → 2NA 09-20 13:04
PROVIDERS: Emergency Medicine; Student in an Organized Health Care Education/Training Program; ADMIT Internal Medicine
DX: N39.0 Urinary tract infection, site not specified (principal); R31.9 Hematuria, unspecified; I10 Essential (primary) hypertension; E78.5 Hyperlipidemia, unspecified; E11.9 Type 2 diabetes mellitus without complications; Z79.84 Long term (current) use of oral hypoglycemic drugs
CPT/HCPCS: 81001; 82436; 87086; 96361; 96374; G0378; J0696

== ENCOUNTER → 2017-10-08 | Day surgery (SDC) | payer OTHER, MEDICARE ==
[~2017-10-08] VITALS: Ht 182.9 cm; Wt 90.3 kg
--- NOTE | 2017-10-08 14:09 | RADIOLOGY REPORT ---
EXAMINATION: XR LUMBAR SPINE CLINICAL INFORMATION: Intraoperative lumbar spine films. COMPARISON: CT abdomen and pelvis 08/29/2016. TECHNIQUE: 2 intraoperative films of the lumbar spine. FINDINGS: The image labeled left image 1 demonstrates a metallic instrument at the midportion of the body of L4. The image labeled left image 2 demonstrates the same metallic instrument in the same location but there are now wire sutures bridging the distance between the posterior spinous process of L3 and L4. IMPRESSION: Intraoperative films as described.
--- NOTE | 2017-10-14 22:31 | Operative Report ---
Operative/Inv Procedure Report Surgery Date: 10/08/17 Name of Procedure: 1) L4 Right Revision Hemilaminotomy With Revision L4-L5 Right Partial Medial Undercutting Facetectomy, Medial Nerve Root Exit Zone Expanding Foraminotomy And Neurodecompressive Discectomy (Martha) Estimated Blood Loss: less than 50ml Surgeon/Roller Picker: MARTHA YUEN,CHRISTA Pride - Primary Admitting Orthopaedic Spine Surgeon Surgical Providers: Christa Thomas M.D. - Orthopaedic Spine Surgeon (Primary Admitting Surgeon) Rupesh Sal P.A.-C - Road Hogger Operator Anesthesia: general endotracheal tube Monitors: Standard general anesthesia and other perioperative monitoring was performed per anesthesia protocols. Refer to anesthesia monitoring records for details. IV Fluids: Standard anesthesia fluid management was performed without requirement for additional or emergent fluid resuscitation. Refer to anesthesia records for details. Implants: Implants Placed: None Graft Placed: None Urine Output: Refer to anesthesia records for details. Drains: None Specimens: Removed lumbar disk fragments were sent to pathology for analysis per hospital protocol. Complications: None Operative/Procedure Note Note: Preoperative Holding Area Assessment/Preparation: The patient was evaluated in the preoperative holding area prior to surgery and no clinical changes or contraindications to surgical intervention were documented compared to the preoperative office and clearance assessments. Specifically, his preoperative radiating claudicating leg pain proportional to activity level persists without further improvement despite excellent compliance with optimized conservative management and remains severely functionally limiting. His provocative findings on examination also persist without change compared to recent medicine clearance and orthopaedic spine service admission examinations. As in the office, the patient was neurovascularly and musculoskeletally intact to standard immediate preoperative testing in both lower extremities. There were no multiple, bilateral or sacral root distribution sensory, motor, coordination, ambulatory or other functional changes reported and no sensory, motor or abnormal reflex findings noted on preoperative examination to suggest acute increase in neural element compression that might be associated with increased neurological intraoperative risk or necessitate an alteration of treatment plan based on preoperative assessment. The surgical plan and site were confirmed with the patient and preoperative paperwork was finalized. Signed operative consent had been obtained in the office with good patient understanding of, acceptance of and agreement with all reasonable potential indications, alternatives, goals, limitations, risks and benefits of the planned procedure. Time was specifically provided by the surgeon for the patient and family to ask any questions, voice any concerns or report any health changes and none were communicated. Consent was briefly reviewed and confirmed. The region of the intended surgical site was cleansed, prepped and marked per protocol. The primary surgeon, anesthesia care team members, and operating room staff confirmed the patient identity, surgical procedure, and operative site as well as other clinical details with the patient in an initial documented preoperative confirmation (awake time out) prior to the administration of sedation or anesthesia. The patient confirmed that he had discontinued all mediations or supplements with significant potential anticoagulant effect (Nonsteroidal Anti-Inflammatory Agents, etc.) per preoperative office protocol instructions. Prior to receiving any preoperative medications, the patient confirmed his NPO status since midnight. Surgical Procedure: The procedure was performed by Dr. Thomas who was present and served as the primary surgeon for all critical intraoperative and perioperative decisions and interventions. The assistance of a specialty trained surgical physician pharmaceutical assistant was critical for safe completion of all phases of the procedure, particularly for maintenance of clear visualization in the operative field and for protected neural element retraction. Rupesh Sal P.A.-C assisted in this capacity throughout each critical phase of the procedure. Set-Up/Positioning/Exposure - The patient was brought to the operating room in stable condition and underwent uncomplicated induction of general anesthesia, intubation, and placement of all appropriate monitors, lines, tubes and catheters without difficulty. Administration of 2 grams of IV Ancef based on patient body mass was given for surgical prophylaxis and was completed at least 30 and less than 60 minutes prior to making an incision. The patient was positioned prone on the standard operating table outfitted with a rigidly attached Cloward frame in typical fashion for a lower lumbar discectomy taking care to protect and stabilize the spine during transfer, avoid positions of nerve stretch, pad all pressure points , and support the head without any pressure on the eyes using a foam head rest. In this case, in order to accommodate the patient's specific upper body anatomy and limited shoulder mobility in extension, a rolled blanket was placed transversely under the chest which provided additional torso elevation and in turn allowed optimized upper body positioning. The arms were abducted less than 90 degrees at the shoulders, flexed less than 90 degrees at the elbows and supported on well-padded arm-boards with additional foam padding from the axillary regions to the hands. All pressure points were either fully padded or suspended without any contact at all between pads. Loupe magnification and headlamp illumination were used throughout the appropriate portions of the procedure. The surgical field was prepped and draped using standard sterile technique with Duraprep, sterile towels, an Ioband incise drape and an edge-adhesive rectangular surgical field drape. Prior to beginning the procedure, the primary surgeon, anesthesia care team, and operating room staff again documented the patient identity, surgical procedure, and operative site in a final confirmation ("final time out") per standard hospital and [facility] protocols. An incision was then mapped based on palpation localization of surface landmarks (bilateral iliac crests and spinous process tips), marked with a sterile surgical marking pen, infiltrated with 0.5% Marcaine local anesthetic and made in the midline extending longitudinally from the superior tip of the presumptive L5 spinous process to the superior tip of the presumptive L4 spinous process overlying the intended L4-L5 operative level. Hemostasis was achieved using Bovie and Bipolar electrocautery beginning with the incision and continuing throughout the procedure with settings appropriate to each progressive level. The lumbosacral fascia was divided over the right side of the palpation localized L4 and superior L5 spinous process tips as well as the bridging interspinous ligament segment between them using the Bovie electrocautery which was also used to maintain hemostasis throughout the exposure. Care was taken to preserve the interspinous ligament so as to maintain optimal postoperative stability and motion segment ligamentous tension. The dissection was then carried down the right side of the middle and inferior L4 spinous process, the interspinous space and the superior margin of the L5 spinous process at the presumptive L4-L5 interval and extended laterally to expose the corresponding laminae and interlaminar space at that exposed level out to the medial edge of the right L4- L5 facet capsule which was preserved. The fibrotic tissue associated with the patients prior surgery made dissection somewhat difficult (as had been discussed with him preoperatively) but did not significantly impede safe and successful dissection and exposure within the previously operated surgical site. The Galvan retractor was placed with lateral blunt serrated ("toothed") blade and medial interspinous hook of appropriate length to provide optimal retraction and visualization. The exposed interlaminar level was marked with a curved curette placed under the inferior leading edge of the superior lamina. The marking instrument was documented to be at a level superior to the intended operative level and so identical dissection and exposure was performed at the level below the marked level, a new marker was placed beneath the upper lamina of that newly exposed lower interval and this lower level was then confirmed to be at the intended interspace (L4-L5) on cross-table lateral radiograph. Intraoperative findings of multilevel lower lumbar moderate degenerative disk disease correlated well with the preoperative radiographic studies and no obvious interval change or additional abnormality was noted. The alignment of the spine on this intraoperative localization radiograph was noted to be normal and unchanged from preoperative office studies without obvious listhesis or other deformity. Hemilaminotomy/Discectomy/Decompression - Attention was then turned to the laminar resection and decompressive discectomy portion of the procedure. The lateral margin of the right pars interarticularis of L4 was identified so as to ensure that the hemilaminotomy was tapered sufficiently to avoid thinning or destabilization of this region. Right L4 inferior hemilaminotomy was performed by thinning the inferior edge of the right L4 lamina in a tapered fashion using the Midas Petr drill followed by piecemeal resection of the deep laminar cortex using Kerrison rongeurs after dissecting under the leading edge with a curved curette to free any underlying adhesions. The inferior right hemilaminotomy of L4 was sufficient to adequately and safely access and decompress the right side of the canal at the L4-L5 level in this case and so no additional interlaminar hemilaminotomy (with resection of the superior margin of L5) was required. The L4 hemilaminotomy was carried out laterally to the level of the medial margin of the facet superficially and to the level of the medial wall of the L5 pedicle within the canal taking care not to violate the posterior facet capsule or excessively thin the pars interarticularis. This dissection provided sufficient canal access in this patient such that only minimal partial medial facetectomy was required for additional exposure. The ligamentum flavum appeared to have been resected at the time of prior surgery and replaced by fibrotic tissue which was quite adherent to the thecal sac particularly in the previous laminotomy site. The Midas Petr drill was used to resect slightly more of the midlaminar and medial facet complex osseous structures than appeared to have been removed at the prior suregry and this did expose normal [place] ligamentum flavum overlying a safe epidural plane for superior and lateral dissection. Although this normal epidural interval could be identified and safely dissected to the floor of the canal, the adherent epidural fibrotic tissue could not be easily dissected from the more medial thecal sac and so was left in place. Fortunately, this epifural fibrosis was fairly well matured and, although very adherent with reduced mobility and elasticity of the thecal sac, it was only moderately and focally tethering without significant thickening, compression, constriction or block to adequate mobilization. Moderate epidural neurolysis was required but in this case it was felt to be consistent with the degree of dissection typically required for a revision procedure and so no separate procedural service was felt to be required. The edge of the [place] ligamentum newly exposed in the periphery of the hemilaminotomy and facet resection area was resected using Kerrison rongeurs and this provided excellent exposure of the canal with full visualization and safe access to the elevated and compressed lateral thecal sac and traversing nerve root at this level to allow for gentle neural element mobilization and protection followed by careful removal of the very large disk herniation fragment. With the dorsolateral dissection and exposure safely completed, attention was then turned to the ventrolateral perineural dissection and safe mobilization of the neural elements for exposure of the compressive disk herniation. On initial visual evaluation, the traversing nerve root and lateral thecal sac were seen to be obviously dorsally displaced and somewhat flattened ventrally by passage over the large underlying herniated disc fragment which appeared to have both significantly extruded into the canal (associated with direct traversing neural structure meningeal contact) and also partially migrated in a subligamentous pocket beneath the posterior longitudinal ligament behind the L5 vertebral body (associated with indirect exiting neural element compression) consistent with the preoperative clinical presentation and MRI findings. The direct contact of the disk material with the meninges was associated with focal areas of ventral nerve root erythema, inflammation and irritation suggestive of chemical as well as compressive radiculopathy and consistent with the severity, chronicity and poor response to conservative measures of the patient's symptoms. All of these findings confirmed the indications for surgery and also corroborated the preoperative determination that improvement would have been unlikely with further conservative management and without surgical intervention. The large size of the extruded disk herniation fragment with extension outside of the normal confines of the disk space and even some migration beyond the motion segment behind the vertebral body along with its chronicity and inflammatory response was associated with moderate epidural fibrosis in the ventral space and therefore necessitated more extensive dissection (and consequently more careful and extensive protection of the neural elements) as well as more operative time than usual even for a typical revision discectomy procedure. Although neurolysis was felt to be significantly increased compared to the average, the fibrotic adhesions did not appear to cause separate tethering or compression of the neural elements, and therefore this additional dissection was still deemed to be consistent with a standard revision discectomy procedure. Gentle palpation and careful dissection with a [place] 4, Eunice curette and limited epidural neurolysis was sufficient to safely mobilize the neural elements and optimally access the more ventral large extruded disk fragment in the lateral recess for safe decompressive discectomy. With a clear plane developed superficial to the fibrotic tissue in the area of prior surgical exposure and in the epidural plane peripheral (particularly lateral) to that, the dissection was carried down the superomedial wall of the L5 pedicle to the floor of the canal using curved curettes, straight curettes and a [place] 4. This dissection was then carried superiorly where the disk space was identified and gently dissected free of adhesions over the top of the extruded disk herniation and presumptive previous discectomy site covered with an adherent but not particularly tethering fibrotic layer. An inferior safe plane was identified lateral to the traversing nerve root just above the L5 pedicle, caudal to the extent of extruded disc fragment and epidural fibrosis. Dissection was then carefully carried superiorly within that safe dissection plane to fully free the traversing root from the disk herniation and fibrous tissue so as to adequately mobilize it for retraction. Once this had been safely achieved the dissection was carried medially over the large extruded fragment until the traversing root and thecal sac could be retracted sufficiently to expose the entire surface of the herniation in preparation for removal of the extruded herniation fragment which appeared to be almost entirely contained within a subligamentous pocket causing significant indirect compression through the posterior longitudinal ligament and fibrous tissue but with only a small area of direct contact to the neural structures. After initial dissection and neural element mobilization the dorsal extent of the disc herniation fragment was exposed by creating a small rent in the overlying ligamentous pocket and gently manipulated from its extruded and partially sequestered position using a pituitary rongeur. Ultimately, a majority of the primary large compressive extruded fragment was removed in a single piece including a small tail of fragment still contained within the disk space and behind the annulus through a moderate-sized annular tear. This sizable fragment measured 15 mm x 8 mm x 2 mm and was quite fibrous. The disk material was only minimally compressible on inspection and palpation consistent with the patient's overall clinical presentation and course as well as the recurrent nature of this herniation. Resection of this fragment resulted in visible decompression of the previously elevated traversing root and thecal sac. This debulking allowed further careful perineural dissection all the way to the ventral midline with significantly less tension on the traversing neural elements thus minimizing risk of injury. The axilla of the traversing root was checked and no fibrotic tethering was found that might cause acute angle "kinking" or other focal compression at the exit of the nerve from the thecal sac. Thus there was no significant dissection required in the axillary zone. With the perineural dissection, neurolysis and resection of extruded fragment complete, the neural elements could be safely retracted so as to allow extension of the previous surgical and new traumatic annulotomy followed by final discectomy of any remaining disk herniation fragments and all loose intradiscal fragments using standard technique with straight and angled pituitary rongeurs. Epidural hemostasis was achieved using Bipolar electrocautery and gentle packing of the epidural space with small volume of Thrombin soaked Gelfoam held with patties which also provided some medial retraction of the neural elements for optimal exposure of the disk space. The traversing nerve root and thecal sac were gently retracted with a Love nerve root retractor to expose the disk space while protecting the neural elements. The subligamentous pocket formed behind the L5 vertebral body by the dissecting portion of the large disk fragment was explored using an Eunice curette to ensure that there were no additional sequestered fragments and none were found. The annulotomy opening through which the disk fragment had extruded was sufficiently large that standard Interspace discectomy could be performed to remove any remaining loose intervertebral disc fragments without the need for etending the annulotomy in order to optimize disk space access. Final resection of any remaining loose disk fragments was performed using straight and angled pituitary rongeurs taking care to carry the discectomy laterally within the disk space ventral to the foramen so as to completely decompress both the intra- and extra-foraminal spaces, in addition to removing any loose central intradiscal fragments anterior to the lateral recess and central canal. The disk material was found to be quite fibrotic in all intradiscal zones consistent with his prior discectomy, documented degenerative disease and age. All loose or non- physiologic disk material was removed from all disk space zones while preserving as much palpable structurally intact disk as possible. Only a few small fragments were removed from the central and lateral regions and no large or compressive loose fragments were found either centrally or laterally. By palpation the large extruded and now resected herniation fragment left a moderate-sized central defect in the disk space, however the remainder of the peripheral disk was of fairly normal consistency by palpation and there were no gross nucleus, annulus or cartilaginous endplate defects palpated in the peripheral zones despite his diffuse degenerative changes on preoperative radiographic studies. Once the discectomy was completed, a nerve hook was used to gently sweep under the retracted traversing nerve root and thecal sac to ensure that there was clear passage within the ventral epidural space with no residual extravasated or sequestered disk fragments found. A Ellevation dental instrument was then gently passed out the upper and lower foramina without evidence of any foraminal narrowing, stenosis or nerve root compression of either the exiting or the traversing roots. Therefore, no osseous foraminotomy, foraminal soft tissue decompression or lateral root neurolysis dissection was required. Mild irritability, hyperactive neural firing and muscular contraction was noted during neurolysis, neural element mobilization and decompressive discectomy of the large extruded disk fragment. This was consistent with the degree of compression and irritation seen both on preoperative MRI and intraoperative inspection. All hyperactive responses resolved immediately following decompression and no further abnormal activity was noted during the remainder of the procedure. Hemostasis of osseous and epidural bleeding was achieved using Thrombin soaked Gelfoam and paddies gently applied and removed by irrigation with all bleeding controlled. Bleeding from the laminectomy edge was controlled with a small amount of bone wax applied using the back of a [place] with any residua removed. Closure/Recovery - The surgical site was thoroughly irrigated and hemostasis was carefully achieved prior to closure. A piece of Gelfoam was cut to match the size of the hemilaminotomy defect and placed over the dorsal surface of the lateral thecal sac and traversing nerve root to minimize epidural fibrotic adhesions to the decompressed neural elements. The surgical site was found to be dry at the end of the procedure and consequently no drain was needed. Initial counts were correct prior to closure. The lumbar fascial layer was reapproximated to the spinous process and trans-spinous portions of the preserved midline interspinous ligament in a [id number] closure using #0 Vicryl interrupted, [id number] suture technique. The deep suprafascial closure was performed with #2-0 Vicryl interrupted, simple suture technique. The superficial subcutaneous layer was closed with #3-0 undyed Vicryl inverted, interrupted, simple sutures. The skin was closed using lilly with the edges everted. A standard, sterile small island dressing was placed with good coverage. All counts were correct prior to removing the drapes. The patient was turned into the supine position on the hospital bed using careful log-roll technique, avoiding torsional stress and stabilizing the lumbar region during transfer. He was then extubated in the operating room without difficulty. Recovery Room Assessment: The patient was transported to the recovery room in stable condition where gross neurological examination showed normal function with no deficits or worsening on initial recovery from anesthesia compared to his pre-operative assessments. In fact, the patient reported early subjective improvement in both his resting right distal lower extremity radiating pain and sensory function which was confirmed by objective evaluation with no worsening on short arc and mild tension provocative testing which had yielded significant worsening of symptoms preoperatively. This early improvement is obviously quite encouraging. The patient will follow the usual postoperative protocol for lower lumbar decompressive discectomy with some adjustments and accommodations made to the standard protocol because of the revision nature of his surgery, size of and extent of compression and irritation generated by the herniation fragment, the degree of preoperative neurological symptomatology and functional limitation as well as the patient's multilevel degenerative changes but desire to return to a high level of function including vigorous recreational activities as quickly as possible. His postoperative care plan will include early mobilization, oral medication pain control and same day home discharge planning with instructions to mobilize frequently but to avoid lumbar angular motion or prolonged unsupported upright sitting. Primarily because of his concomitant moderate degenerative disk disease he will use a circumferentially buttressed compression brace during the initial phase of healing for both stability and some distraction so as to optimize fibrous intervertebral disk space stabilization and healing. Lower extremity (particularly gentle hip and knee) motion is encouraged to promote longitudinal nerve motion and minimize fibrotic neural tethering during the fibrous consolidation and motion segment stabilization healing phase. This gentle postoperative motion program should also help to prevent joint stiffness given his moderate diffuse arthritic condition evident on preoperative radiographs. Outpatient rehabilitation program will be arranged through the office to begin slowly but progressively at approximately 4 weeks after surgery assuming standard and uncomplicated postoperative course and following clearance at his initial postoperative follow-up assessment. Discharge Disposition: PACU CC: Martha YUEN,Christa Pride; Rupesh Thompson
== END ==
LOC: STS 02:44
DX: M51.16 Intervertebral disc disorders with radiculopathy, lumbar region (principal); M79.661 Pain in right lower leg; M54.9 Dorsalgia, unspecified; E11.9 Type 2 diabetes mellitus without complications; Z79.84 Long term (current) use of oral hypoglycemic drugs; I10 Essential (primary) hypertension; R01.1 Cardiac murmur, unspecified; Z79.82 Long term (current) use of aspirin
CPT/HCPCS: 36415; 72020; 88304; J0131; J0690; J1885; J2405; J3490